=== PATIENT | female | born 1940 | race American Indian/Alaskan Native ===

== ENCOUNTER 2017-10-12 10:45 | Emergency (ER) | payer MEDICARE ==
[2017-10-12 12:16] LABS: BASO # 0.1 K/uL (0.0-0.2); BASO % 1.2 % (0.0-2.0); EOS # 0.1 K/uL (0.0-0.7); EOS % 1.2 % (0.0-4.0); HEMOGLOBIN 10.2 g/dL (11.0-16.0); LYMPH # 0.9 K/uL (1.0-4.3); LYMPH % 19.4 % (20.0-40.0); MEAN CELL VOLUME 93.6 fL (81.0-99.0); MEAN CORPUSCULAR HEMOGLOBIN 31.4 pg (27.0-31.0); MEAN CORPUSCULAR HGB CONC 33.5 g/dL (33.0-37.0); MEAN PLATELET VOLUME 7.4 fL (7.2-11.7); MONO # 0.4 K/uL (0.0-0.8); MONO % 8.9 % (0.0-10.0); NEUT # 3.1 K/uL (1.8-7.0); NEUT % 69.3 % (50.0-75.0); NRBC % 0.1 % (0.0-2.0); RBC 3.25 Mil/uL (3.80-5.20); RED CELL DISTRIBUTION WIDTH 13.8 % (11.5-14.5); WHITE BLOOD COUNT 4.5 K/uL (4.8-10.8)
--- NOTE | 2017-10-12 12:43 | C.PDOC ---
History Of Present Illness 76 year old female, with PMHx of diabetes, HTN, and hypercholesterolemia, presents to ED for evaluation of shortness of breath that started last night. Notes she had difficulty breathing last night, felt as if she couldn't catch her breath, which prevented her from sleeping last night. Notes that symptoms resolved this morning. Denies taking any medications. Denies history of similar symptoms in the past. She admits to leg swelling. Otherwise, denies chest pain, fever, chills, cough, nausea, or vomiting. Time Seen by Provider: 10/12/17 11:49 Chief Complaint (Nursing): Shortness Of Breath History Per: Patient History/Exam Limitations: no limitations Onset/Duration Of Symptoms: Days Current Symptoms Are (Timing): Gone Severity: None Pain Scale Rating Of: 0 Associated Symptoms: Ankle/Leg Swelling. denies: Sweating, Chest Pain, Productive Cough, Heart Racing, Leg/Calf Pain, Dizziness, Light-headedness Recent travel outside of the [place]: No Additional History Per: Patient Past Medical History Reviewed: Historical Data, Nursing Documentation, Vital Signs Vital Signs: Last Vital Signs Temp 97.5 F L 10/12/17 10:57 Pulse 71 10/12/17 12:47 Resp 16 10/12/17 12:47 BP 200/69 H 10/12/17 12:47 Pulse Ox 99 10/12/17 13:00 - Medical History PMH: Diabetes, HTN, Hypercholesterolemia, Hyperlipidemia Family History: States: Unknown Family Hx - Social History Hx Alcohol Use: No Hx Substance Use: No Review Of Systems Except As Marked, All Systems Reviewed And Found Negative. Constitutional: Negative for: Fever, Chills Cardiovascular: Positive for: Edema. Negative for: Chest Pain, Palpitations, Light Headedness Respiratory: Negative for: Cough, Shortness of Breath Gastrointestinal: Negative for: Nausea, Vomiting Neurological: Negative for: Headache, Dizziness Physical Exam - Physical Exam Appears: Non-toxic, No Acute Distress Skin: Normal Color, Warm, Dry Head: Atraumatic, Normacephalic Eye(s): bilateral: Normal Inspection Oral Mucosa: Moist Neck: Normal ROM, Supple Chest: Symmetrical Cardiovascular: Rhythm Regular Respiratory: Normal Breath Sounds, No Accessory Muscle Use, No Rales, No Rhonchi , No Wheezing Gastrointestinal/Abdominal: Soft, No Tenderness Extremity: Normal ROM, Pedal Edema (bilateral) Neurological/Psych: Oriented x3, Normal Speech ED Course And Treatment - Laboratory Results Result Diagrams: 10/12/17 12:12 10/12/17 12:46 O2 Sat by Pulse Oximetry: 99 (RA) Pulse Ox Interpretation: Normal Progress Note: Blood work, Urinalysis, CXR, EKG ordered. Patient will be signed over to ELAYNE Woods, pending labs and re-evaluation. Disposition - Disposition Disposition Time: 13:18 Condition: STABLE Forms: [employer] (Martiniquais) - Clinical Impression Clinical Impression: SOB (shortness of breath) - PA / TRANSMISSION SUPERVISOR / Resident Statement MD/DO has reviewed & agrees with the documentation as recorded. - Scribe Statement The provider has reviewed the documentation as recorded by the Scribe KP All medical record entries made by the Scribe were at my direction and personally dictated by me. I have reviewed the chart and agree that the record accurately reflects my personal performance of the history, physical exam, medical decision making, and the department course for this patient. I have also personally directed, reviewed, and agree with the discharge instructions and disposition. Physician Patient Turnover Patient Signed Over To: Tarsha Woods Handoff Comments: Pending labs and re-evaluation.
[2017-10-12 12:57] LABS: URINE BILIRUBIN NEGATIVE (NEGATIVE); URINE BLOOD NEGATIVE (NEGATIVE); URINE CLARITY Clear (Clear); URINE COLOR Yellow (YELLOW); URINE GLUCOSE (UA) NORMAL (Normal); URINE LEUKOCYTE ESTERASE NEG Leu/uL (Negative); URINE PROTEIN 2+ mg/dL (NEGATIVE); URINE UROBILINOGEN NORMAL mg/dL (0.2-1.0)
[2017-10-12 13:02] LABS: INR 1.1; PROTHROMBIN TIME 12.2 SECONDS (9.7-12.2)
[2017-10-12 13:05] LABS: ALB/GLOB RATIO 1.3 (1.0-2.1); ALBUMIN 4.2 g/dL (3.5-5.0); CALCIUM 10.2 mg/dl (8.6-10.4)
[2017-10-12 14:59] LABS: CK-MB 1.76 ng/mL (0.0-3.38)
--- NOTE | 2017-10-12 14:59 | RAD ---
Chest x-ray two views History: Shortness of breath Comparison: 12/03/2012 Findings: Biapical pleural thickening with upper lobe granulomatous changes. Mild venous congestion. Patchy increased markings at the left lung base. Enlarged ectatic aorta with calcification at the aortic knob and aorta. Mild cardiomegaly. Degenerative changes in the spine with paravertebral osteophytes. Impression: Biapical pleural thickening with upper lobe granulomatous changes. Mild venous congestion. Patchy increased markings at the left lung base. Enlarged ectatic aorta with calcification at the aortic knob and aorta. Mild cardiomegaly. Degenerative changes in the spine with paravertebral osteophytes.
[2017-10-12 15:39] LABS: TROPONIN I 0.357 ng/mL (0.00-0.120)
[2017-10-12] MEDS ORDERED: SODIUM CHLORIDE 0.9% IV ONE (16:08)
[2017-10-12] MEDS ORDERED: HEPARIN IV ONE (16:08)
[2017-10-12] MEDS ORDERED: Heparin 25,000units in D5W 25,000 UNITS/250 ML BAG IV ONE (16:10)
[2017-10-12] MEDS ORDERED: Metoprolol 1 mg/ml Inj IVP STA (16:11)
[2017-10-12] MEDS ORDERED: Metoprolol 1 mg/ml Inj IVP ONE (16:26)
[2017-10-12 17:47] VITALS: BP 162/86; PULSE 86; RESP 18; TEMP 98; O2SAT 96
--- NOTE | 2017-10-14 15:57 | NM ---
Date of service: 10/12/2017 COMPARISON: Chest radiographs 10/12/2017. TECHNIQUE: 6.2 mCi technetium 99-m Xe-133 Gas. 4.9 mCI technetium 99-m MAA administered intravenously. FINDINGS: VENTILATION COMPONENT: No significant ventilation defect is appreciated in posterior plantar imaging. Normal washout is identified. PERFUSION COMPONENT: No definite moderate or large perfusion mismatch is identified. IMPRESSION: Lowprobability ventilation perfusion scan for pulmonary embolism. Concordant preliminary report from [facility], 10/12/2017.
--- NOTE | 2017-10-15 16:52 | CARD ---
APPROVED REPORT Date of service: 10/12/2017 EKG Measurement Heart [id number] NM [id number] <Conclusion> Sinus rhythm with premature atrial complexes Possible Left atrial enlargement Borderline ECG
== END 2017-10-12 17:47 | disposition left against medical advice (07) ==
LOC: C.ER 10:45
DX: I21.4 Non-ST elevation (NSTEMI) myocardial infarction (principal); R06.02 Shortness of breath
CPT/HCPCS: 72HRC; 93005

== ENCOUNTER 2017-10-12 20:03 | Inpatient (IN) | payer MEDICARE ==
--- NOTE | 2017-10-12 20:17 | C.PDOC ---
History Of Present Illness <Digna Segovia - Last Filed: 10/12/17 20:14> <Andry Junior DO - Last Filed: 10/12/17 21:14> 76 y/o female returns to ED for admission. Pt was seen here earlier but signed AMA. (Andry Junior DO) <Digna Segovia - Last Filed: 10/12/17 20:14> <Andry Junior DO - Last Filed: 10/12/17 21:14> Chief Complaint (Nursing): Shortness Of Breath Past Medical History - Medical History PMH: Diabetes, HTN, Hypercholesterolemia, Hyperlipidemia Family History: States: Unknown Family Hx - Social History Hx Alcohol Use: No Hx Substance Use: No <Digna Segovia - Last Filed: 10/12/17 20:14> Vital Signs: Last Vital Signs Temp 98.1 F 10/12/17 20:10 Pulse 71 10/12/17 20:10 Resp 20 10/12/17 20:57 BP 172/72 H 10/12/17 20:10 Pulse Ox 98 10/12/17 20:57 ED Course And Treatment O2 Sat by Pulse Oximetry: 98 <Digna Segovia - Last Filed: 10/12/17 20:14> Disposition <Digna Segovia - Last Filed: 10/12/17 20:14> <Andry Junior DO - Last Filed: 10/12/17 21:14> - Disposition Forms: [employer] (French) <Digna Segovia - Last Filed: 10/12/17 20:14> - Scribe Statement The provider has reviewed the documentation as recorded by the Scribe <Andry Junior DO - Last Filed: 10/12/17 21:14> - Scribe Statement Jr Petit All medical record entries made by the Scribe were at my direction and personally dictated by me. I have reviewed the chart and agree that the record accurately reflects my personal performance of the history, physical exam, medical decision making, and the department course for this patient. I have also personally directed, reviewed, and agree with the discharge instructions and disposition. (Andry Junior DO)
--- NOTE | 2017-10-12 21:18 | C.PDOC ---
History Of Present Illness 76 y/o female returns to ED for admission. Pt was seen here earlier today for shortness of breath, was advised to stay for admission but signed AMA. She denies any new complaints at this time. Chief Complaint (Nursing): Shortness Of Breath History Per: Patient History/Exam Limitations: no limitations Past Medical History Reviewed: Historical Data, Nursing Documentation, Vital Signs Vital Signs: Last Vital Signs Temp 98.1 F 10/12/17 20:10 Pulse 71 10/12/17 20:10 Resp 20 10/12/17 20:57 BP 172/72 H 10/12/17 20:10 Pulse Ox 98 10/12/17 21:19 - Medical History PMH: Diabetes, HTN, Hypercholesterolemia, Hyperlipidemia Family History: States: Unknown Family Hx - Social History Hx Alcohol Use: No Hx Substance Use: No Review Of Systems Except As Marked, All Systems Reviewed And Found Negative. Constitutional: Negative for: Fever, Chills Cardiovascular: Negative for: Chest Pain, Palpitations Respiratory: Negative for: Cough, Shortness of Breath Gastrointestinal: Negative for: Nausea, Vomiting, Abdominal Pain Physical Exam - Physical Exam Appears: Non-toxic, No Acute Distress Skin: Normal Color, Warm, Dry Head: Atraumatic, Normacephalic Eye(s): bilateral: Normal Inspection Oral Mucosa: Moist Neck: Normal ROM, Supple Cardiovascular: Rhythm Regular Respiratory: Normal Breath Sounds, No Rales, No Rhonchi, No Wheezing Gastrointestinal/Abdominal: Soft, No Tenderness Extremity: Normal ROM, No Pedal Edema Neurological/Psych: Oriented x3, Normal Speech ED Course And Treatment ECG: Interpreted By Me, Viewed By Me ECG Rhythm: Sinus Rhythm ECG Interpretation: No Acute Changes Rate From EC (bpm) O2 Sat by Pulse Oximetry: 98 (RA) Pulse Ox Interpretation: Normal Medical Decision Making Medical Decision Making: EKG ordered and reviewed. Pending call back from PMD. Disposition - Disposition Disposition Time: 21:00 Condition: GUARDED - Clinical Impression Clinical Impression: NSTEMI (non-ST elevated myocardial infarction) - Scribe Statement The provider has reviewed the documentation as recorded by the Scribe Jr Petit All medical record entries made by the Scribe were at my direction and personally dictated by me. I have reviewed the chart and agree that the record accurately reflects my personal performance of the history, physical exam, medical decision making, and the department course for this patient. I have also personally directed, reviewed, and agree with the discharge instructions and disposition.
[2017-10-12 22:45] LABS: CK-MB 2.43 ng/mL (0.0-3.38); TROPONIN I 0.337 ng/mL (0.00-0.120)
[2017-10-12] MEDS ORDERED: Heparin25000 units/250ml 1/2NS 25,000 UNITS/250 ML BAG IV STA (22:48)
[2017-10-12] MEDS ORDERED: Heparin25000 units/250ml 1/2NS 25,000 UNITS/250 ML BAG IV PRN (22:53)
[2017-10-13 05:13] LABS: EOS # 0.1 K/uL (0.0-0.7); HEMOGLOBIN 10.4 g/dL (11.0-16.0); LYMPH % 19.3 % (20.0-40.0); MEAN CELL VOLUME 93.1 fL (81.0-99.0); MEAN CORPUSCULAR HGB CONC 33.3 g/dL (33.0-37.0); MONO # 0.5 K/uL (0.0-0.8); MONO % 9.7 % (0.0-10.0); NEUT # 3.4 K/uL (1.8-7.0); NRBC % 0.1 % (0.0-2.0); RBC 3.34 Mil/uL (3.80-5.20); RED CELL DISTRIBUTION WIDTH 13.8 % (11.5-14.5)
[2017-10-13 05:30] LABS: PROTHROMBIN TIME 12.8 SECONDS (9.7-12.2)
[2017-10-13 05:31] LABS: INR 1.2
[2017-10-13 06:24] LABS: ALB/GLOB RATIO 1.3 (1.0-2.1); ALBUMIN 4.1 g/dL (3.5-5.0); CALCIUM 10.1 mg/dl (8.6-10.4); TROPONIN I 0.241 ng/mL (0.00-0.120)
[2017-10-13] MEDS ORDERED: Heparin25000 units/250ml 1/2NS 25,000 UNITS/250 ML BAG IV PRN (14:45)
--- NOTE | 2017-10-13 16:19 | CP.PCM.HP ---
History of Present Illness - History of Present Illness History of Present Illness: This is a 76 y/o female diabetic, with known history of HTN, hyperlipiedemia who was admitted because of shortness of breath. patient claims that she noted that she has been getting easily tired and progressively short of breath about 4 -5 days prior to admission ostensibly because of the heat. She also noted on and off ankle edema. On the night prior to admission, she could not sleep because she could not catch her breath when she laid down on the bed and felt more tired in the morning and hence she decided to go to the ER. She was found to have elevated troponin and was advised to be admitted. She initially refused and signed out AMA but later came back and agreed to stay. She denies any chest pain, epigastric pain or history of indigestion. There is no history of nausea or vomiting, palpitation or syncope. Present on Admission - Present on Admission Any Indicators Present on Admission: No Review of Systems - Constitutional Constitutional: Fatigue, Weakness - Cardiovascular Cardiovascular: Dyspnea on Exertion, Edema - Respiratory Respiratory: Dyspnea on Exertion - Musculoskeletal Musculoskeletal: As Per HPI - Psychiatric Psychiatric: As Per HPI Past Patient History - Infectious Disease Hx of Infectious Diseases: None - Past Medical History & Family History Past Medical History?: Yes - Past Social History Smoking Status: Never Smoked Chewing Tobacco Use: No Alcohol: None Drugs: Denies - CARDIAC Hx Hypercholesterolemia: Yes Hx Hypertension: Yes - PULMONARY Hx Respiratory Disorders: No - NEUROLOGICAL Hx Neurological Disorder: No - HEENT Hx Cataracts: Yes - RENAL Hx Chronic Kidney Disease: No - ENDOCRINE/METABOLIC Hx Diabetes Mellitus Type 2: Yes - HEMATOLOGICAL/ONCOLOGICAL Hx Blood Disorders: No - INTEGUMENTARY Hx Dermatological Problems: No - MUSCULOSKELETAL/RHEUMATOLOGICAL Hx Falls: Yes - GASTROINTESTINAL Hx Gastrointestinal Disorders: No - GENITOURINARY/GYNECOLOGICAL Hx Genitourinary Disorders: No - PSYCHIATRIC Hx Psychophysiologic Disorder: No Hx Substance Use: No - SURGICAL HISTORY Hx Surgeries: Yes Hx Hysterectomy: Yes - ANESTHESIA Hx Anesthesia: Yes Hx Anesthesia Reactions: No Meds Allergies/Adverse Reactions: Allergies Allergy/AdvReac Type Severity Reaction Status Date / Time metformin AdvReac Intermediate VOMITING Verified 10/16/17 16:22 Physical Exam - Constitutional Appears: No Acute Distress - Head Exam Head Exam: NORMAL INSPECTION - Eye Exam Eye Exam: Normal appearance - ENT Exam ENT Exam: Normal Exam - Neck Exam Neck exam: Positive for: Normal Inspection - Respiratory Exam Respiratory Exam: Clear to Auscultation Bilateral, NORMAL BREATHING PATTERN - Cardiovascular Exam Cardiovascular Exam: REGULAR RHYTHM, +S1, +S2 - GI/Abdominal Exam GI & Abdominal Exam: Normal Bowel Sounds, Soft - Extremities Exam Extremities exam: Positive for: normal inspection - Neurological Exam Neurological exam: Alert, Oriented x3 - Psychiatric Exam Psychiatric exam: Normal Affect, Normal Mood - Skin Skin Exam: Dry, Intact Results - Vital Signs Recent Vital Signs: Last Vital Signs Temp 97.9 F 10/13/17 09:25 Pulse 63 10/13/17 09:45 Resp 20 10/13/17 09:25 BP 149/69 10/13/17 09:25 Pulse Ox 99 10/13/17 09:25 - Labs Result Diagrams: 10/15/17 08:29 10/15/17 08:29 Labs: Laboratory Results - last 24 hr 10/12/17 10/13/17 10/13/17 22:00 05:10 05:10 WBC RBC Hgb Hct MCV MCH MCHC RDW Plt Count MPV Neut % (Auto) Lymph % (Auto) [place] % (Auto) Eos % (Auto) Baso % (Auto) Neut # (Auto) Lymph # (Auto) [place] # (Auto) Eos # (Auto) Baso # (Auto) PT 12.8 H INR 1.2 APTT 210 H* D Sodium 144 Potassium 3.6 Chloride 105 Carbon Dioxide 31 H Anion Gap 12 BUN 27 H Creatinine 1.8 H Est GFR ( Amer) 33 Est GFR (Non-Af Amer) 27 Random Glucose 105 Calcium 10.1 Total Bilirubin 0.3 AST 63 H D ALT 63 H D Alkaline Phosphatase 114 Total Creatine Kinase 213 H CK-MB (Mass) 2.43 Troponin I 0.3370 H* 0.2410 H* Total Protein 7.3 Albumin 4.1 Globulin 3.2 Albumin/Globulin Ratio 1.3 10/13/17 10/13/17 10/13/17 05:10 13:20 14:03 WBC 5.0 RBC 3.34 L Hgb 10.4 L Hct 31.1 L MCV 93.1 MCH 31.0 MCHC 33.3 RDW 13.8 Plt Count 268 MPV 7.0 L Neut % (Auto) 68.0 Lymph % (Auto) 19.3 L [place] % (Auto) 9.7 Eos % (Auto) 2.0 Baso % (Auto) 1.0 Neut # (Auto) 3.4 Lymph # (Auto) 1.0 [place] # (Auto) 0.5 Eos # (Auto) 0.1 Baso # (Auto) 0.0 PT INR APTT 41 H D Sodium Potassium Chloride Carbon Dioxide Anion Gap BUN Creatinine Est GFR ( Amer) Est GFR (Non-Af Amer) Random Glucose Calcium Total Bilirubin AST ALT Alkaline Phosphatase Total Creatine Kinase CK-MB (Mass) Troponin I 0.1500 H* Total Protein Albumin Globulin Albumin/Globulin Ratio Assessment & Plan (1) NSTEMI (non-ST elevated myocardial infarction) Assessment and Plan: No chest pain, troponin trending down. patient is chest pain free no further shortness of breath at rest continue heparin drip for now under PT/PTT monitoring Continue rest of meds. Patient has multiple risk factors and will need cardiac cath to determine extent of CAD Status: Acute Priority: High (2) Type 2 diabetes mellitus with hyperglycemia Assessment and Plan: Patient on multiple oral hypoglycemic agents because she refuses to go on insulin. Will check HGbA1c and ordered accucheck Status: Chronic Priority: High (3) Hypertension Assessment and Plan: cxontrolled on current meds. Status: Chronic Priority: Medium (4) Hyperlipidemia Assessment and Plan: Continue Crestor Status: Chronic Priority: High (5) Prerenal azotemia Assessment and Plan: CHF vs Diabetic nephropathy. Continue current Rx and monitor renal function. Status: Acute Priority: High Decision To Admit - Pt Status Changed To: Hospital Disposition Of: Inpatient - Admit Certification Admit to Inpatient:: After my assessment, the patient will require hospitalization for at least two midnights. This is because of the severity of symptoms shown, intensity of services needed, and/or the medical risk in this patient being treated as an outpatient. - InPatient: Physician Admission Certification:: After my assessment, the patient will require hospitalization for at least two midnights. This is because of the severity of symptoms shown, intensity of services needed, and/or the medical risk in this patient being treated as an outpatient - . Bed Request Type: Telemetry Admitting Physician: Cande Coleman
[2017-10-13] MEDS: (Novolin 70/30) NPH/Regular 70/30 Units/ml 10 ml vial SC SCH ×2 (17:46→21:39)
--- NOTE | 2017-10-13 22:54 | CP.PCM.CON ---
History of Present Illness - History of Present Illness History of Present Illness: 76 F with multiple cardiac risk risk factors Admitted for Non ST elevation CA Scheduled for Cardiac cath tomorrow afternoon NPO after breakfast D/W patient and her Past Patient History - Infectious Disease Hx of Infectious Diseases: None - Past Medical History & Family History Past Medical History?: Yes - Past Social History Smoking Status: Never Smoked Chewing Tobacco Use: No Alcohol: None Drugs: Denies - CARDIAC Hx Hypercholesterolemia: Yes Hx Hypertension: Yes - PULMONARY Hx Respiratory Disorders: No - NEUROLOGICAL Hx Neurological Disorder: No - HEENT Hx Cataracts: Yes - RENAL Hx Chronic Kidney Disease: No - ENDOCRINE/METABOLIC Hx Diabetes Mellitus Type 2: Yes - HEMATOLOGICAL/ONCOLOGICAL Hx Blood Disorders: No - INTEGUMENTARY Hx Dermatological Problems: No - MUSCULOSKELETAL/RHEUMATOLOGICAL Hx Falls: Yes - GASTROINTESTINAL Hx Gastrointestinal Disorders: No - GENITOURINARY/GYNECOLOGICAL Hx Genitourinary Disorders: No - PSYCHIATRIC Hx Psychophysiologic Disorder: No Hx Substance Use: No - SURGICAL HISTORY Hx Surgeries: Yes Hx Hysterectomy: Yes - ANESTHESIA Hx Anesthesia: Yes Hx Anesthesia Reactions: No Meds Allergies/Adverse Reactions: Allergies Allergy/AdvReac Type Severity Reaction Status Date / Time No Known Allergies Allergy Verified 10/12/17 20:13 - Medications Medications: Current Medications Amlodipine Besylate (Norvasc) 5 mg PO DAILY [facility] Last Admin: 10/13/17 10:10 Dose: 5 mg Aspirin (Aspirin Chewable) 81 mg PO DAILY [facility] Last Admin: 10/13/17 18:12 Dose: 81 mg Glipizide (Glucotrol) 10 mg PO BID [facility] Last Admin: 10/13/17 17:49 Dose: Not Given Heparin Sodium/Sodium Chloride (Heparin 22868 Units/250ml 1/2 Normal Saline) 25 ,000 units in 250 mls @ 3.963 mls/hr IV .Q24H PRN; Protocol; 6.24 UNITS/KG/HR PRN Reason: ADJUST RATE PER PROTOCOL Last Admin: 10/13/17 15:06 Dose: 6.24 units/kg/hr, 3.963 mls/hr Insulin Human Isoph/Insulin Regular (Novolin 70/30 (70/30 Units/Ml) 10 Ml) 0 units SC ACHS [facility] PRN Reason: Protocol Last Admin: 10/13/17 21:39 Dose: Not Given Losartan Potassium (Cozaar) 100 mg PO DAILY [facility] Last Admin: 10/13/17 10:10 Dose: 100 mg Metoprolol Tartrate (Lopressor) 50 mg PO BID [facility] Last Admin: 10/13/17 18:12 Dose: 50 mg Pioglitazone HCl (Actos) 45 mg PO DAILY [facility] Last Admin: 10/13/17 10:52 Dose: 45 mg Rosuvastatin Calcium (Crestor) 5 mg PO HS [facility] Last Admin: 10/13/17 22:16 Dose: 5 mg Sitagliptin Phosphate (Januvia) 50 mg PO DAILY [facility] Results - Vital Signs Recent Vital Signs: Last Vital Signs Temp 98.4 F 10/13/17 15:15 Pulse 71 10/13/17 16:00 Resp 20 10/13/17 15:15 BP 148/69 10/13/17 15:15 Pulse Ox 96 10/13/17 15:15 - Labs Result Diagrams: 10/13/17 05:10 10/13/17 05:10 Labs: Laboratory Results - last 24 hr 10/13/17 10/13/17 10/13/17 05:10 05:10 05:10 WBC 5.0 RBC 3.34 L Hgb 10.4 L Hct 31.1 L MCV 93.1 MCH 31.0 MCHC 33.3 RDW 13.8 Plt Count 268 MPV 7.0 L Neut % (Auto) 68.0 Lymph % (Auto) 19.3 L [place] % (Auto) 9.7 Eos % (Auto) 2.0 Baso % (Auto) 1.0 Neut # (Auto) 3.4 Lymph # (Auto) 1.0 [place] # (Auto) 0.5 Eos # (Auto) 0.1 Baso # (Auto) 0.0 PT 12.8 H INR 1.2 APTT 210 H* D Sodium 144 Potassium 3.6 Chloride 105 Carbon Dioxide 31 H Anion Gap 12 BUN 27 H Creatinine 1.8 H Est GFR ( Amer) 33 Est GFR (Non-Af Amer) 27 Random Glucose 105 Calcium 10.1 Total Bilirubin 0.3 AST 63 H D ALT 63 H D Alkaline Phosphatase 114 Troponin I 0.2410 H* NT-Pro-B Natriuret Pep Total Protein 7.3 Albumin 4.1 Globulin 3.2 Albumin/Globulin Ratio 1.3 10/13/17 10/13/17 10/13/17 13:20 14:03 16:24 WBC RBC Hgb Hct MCV MCH MCHC RDW Plt Count MPV Neut % (Auto) Lymph % (Auto) [place] % (Auto) Eos % (Auto) Baso % (Auto) Neut # (Auto) Lymph # (Auto) [place] # (Auto) Eos # (Auto) Baso # (Auto) PT INR APTT 41 H D Sodium Potassium Chloride Carbon Dioxide Anion Gap BUN Creatinine Est GFR ( Amer) Est GFR (Non-Af Amer) Random Glucose Calcium Total Bilirubin AST ALT Alkaline Phosphatase Troponin I 0.1500 H* NT-Pro-B Natriuret Pep 2540 H Total Protein Albumin Globulin Albumin/Globulin Ratio 10/13/17 21:07 WBC RBC Hgb Hct MCV MCH MCHC RDW Plt Count MPV Neut % (Auto) Lymph % (Auto) [place] % (Auto) Eos % (Auto) Baso % (Auto) Neut # (Auto) Lymph # (Auto) [place] # (Auto) Eos # (Auto) Baso # (Auto) PT INR APTT 46 H D Sodium Potassium Chloride Carbon Dioxide Anion Gap BUN Creatinine Est GFR ( Amer) Est GFR (Non-Af Amer) Random Glucose Calcium Total Bilirubin AST ALT Alkaline Phosphatase Troponin I NT-Pro-B Natriuret Pep Total Protein Albumin Globulin Albumin/Globulin Ratio
[2017-10-14 03:43] LABS: BASO % 0.4 % (0.0-2.0); EOS # 0.1 K/uL (0.0-0.7); EOS % 2.8 % (0.0-4.0); HEMOGLOBIN 9.8 g/dL (11.0-16.0); LYMPH # 0.8 K/uL (1.0-4.3); LYMPH % 21.3 % (20.0-40.0); MEAN CELL VOLUME 94.3 fL (81.0-99.0); MEAN CORPUSCULAR HEMOGLOBIN 31.8 pg (27.0-31.0); MEAN CORPUSCULAR HGB CONC 33.7 g/dL (33.0-37.0); MEAN PLATELET VOLUME 7.1 fL (7.2-11.7); MONO # 0.4 K/uL (0.0-0.8); MONO % 10.4 % (0.0-10.0); NEUT # 2.5 K/uL (1.8-7.0); NEUT % 65.1 % (50.0-75.0); NRBC % 0.2 % (0.0-2.0); RBC 3.1 Mil/uL (3.80-5.20); RED CELL DISTRIBUTION WIDTH 13.8 % (11.5-14.5); WHITE BLOOD COUNT 3.8 K/uL (4.8-10.8)
[2017-10-14 04:07] LABS: CK-MB 1.53 ng/mL (0.0-3.38); TROPONIN I 0.1 ng/mL (0.00-0.120)
[2017-10-14 04:19] LABS: ALB/GLOB RATIO 1.2 (1.0-2.1); ALBUMIN 3.8 g/dL (3.5-5.0); CALCIUM 9.7 mg/dl (8.6-10.4)
[2017-10-14] MEDS: (Novolin 70/30) NPH/Regular 70/30 Units/ml 10 ml vial SC SCH ×4 (08:29→21:32)
--- NOTE | 2017-10-14 09:01 | HP ---
Copied To: Gege Handley MD Attending MD: Gege Handley MD The patient is 76-year-old female. Actually, I was on-call on 10/12/[address] [facility] ER called me that patient was in emergency room. They tried to call Dr. Alicia at least 4 to 5 hours, Dr. Alicia never called back. Then they have to dispose the patient to be admitted under my service but later on the day nurse informed me Dr. Alicia came and saw the patient and did H and P. Even patient was admitted under my service, but without conversation with me. Dr. Alicia took the patient, but I am appreciating that he saw the patient now, Dr. Alicia will continue taking care of this patient. Gege Handley MD MTDD
--- NOTE | 2017-10-14 11:57 | CP.PCM.PN ---
Subjective - Date & Time of Evaluation Date of Evaluation: 10/14/17 Time of Evaluation: 11:30 - Subjective Subjective: patient comfortable, chest pain-free serum troponin- back to normal patient scheduled for cardiac cath today Objective - Vital Signs/Intake and Output Vital Signs (last 24 hours): Temp Pulse Resp BP Pulse Ox 97.9 F 60 20 173/66 H 98 10/14/17 07:11 10/14/17 07:11 10/14/17 07:11 10/14/17 07:11 10/14/17 07:11 Intake and Output: 10/14/17 10/14/17 06:59 18:59 Intake Total 29 Balance 29 - Medications Medications: Current Medications Amlodipine Besylate (Norvasc) 5 mg PO DAILY [facility] Last Admin: 10/14/17 11:45 Dose: 5 mg Aspirin (Aspirin Chewable) 81 mg PO DAILY [facility] Last Admin: 10/14/17 11:09 Dose: Not Given Glipizide (Glucotrol) 10 mg PO BID [facility] Last Admin: 10/14/17 11:20 Dose: Not Given Heparin Sodium/Sodium Chloride (Heparin 17536 Units/250ml 1/2 Normal Saline) 25 ,000 units in 250 mls @ 3.963 mls/hr IV .Q24H PRN; Protocol; 6.24 UNITS/KG/HR PRN Reason: ADJUST RATE PER PROTOCOL Last Titration: 10/14/17 04:48 Dose: 8.24 units/kg/hr, 5.233 mls/hr Sodium Chloride (Sodium Chloride 0.45%) 1,000 mls @ 50 mls/hr IV .Q20H [facility] Insulin Human Isoph/Insulin Regular (Novolin 70/30 (70/30 Units/Ml) 10 Ml) 0 units SC ACHS [facility] PRN Reason: Protocol Last Admin: 10/14/17 11:46 Dose: Not Given Losartan Potassium (Cozaar) 100 mg PO DAILY [facility] Last Admin: 10/14/17 09:16 Dose: 100 mg Metoprolol Tartrate (Lopressor) 50 mg PO BID [facility] Last Admin: 10/14/17 09:16 Dose: 50 mg Pioglitazone HCl (Actos) 45 mg PO DAILY [facility] Last Admin: 10/14/17 11:20 Dose: Not Given Rosuvastatin Calcium (Crestor) 5 mg PO HS [facility] Last Admin: 10/13/17 22:16 Dose: 5 mg Sitagliptin Phosphate (Januvia) 50 mg PO DAILY [facility] Last Admin: 10/14/17 11:21 Dose: Not Given - Labs Labs: 10/14/17 03:39 10/14/17 03:39 PT 12.8 SECONDS (9.7-12.2) H 10/13/17 05:10 INR 1.2 10/13/17 05:10 APTT 48 SECONDS (21-34) H D 10/14/17 11:23 Assessment and Plan (1) NSTEMI (non-ST elevated myocardial infarction) Status: Acute (2) Type 2 diabetes mellitus with hyperglycemia Status: Chronic (3) Hypertension Status: Chronic (4) Hyperlipidemia Status: Chronic (5) Prerenal azotemia Status: Acute
[2017-10-14] MEDS ORDERED: Sodium Chloride 0.45% 1,000 ML IV SCH ×2 (12:00→15:30)
[2017-10-14] MEDS ORDERED: Iodixanol 320 MG/ML 100 ML BOTTLE IV ONE ×2 (14:28→15:09)
[2017-10-14] MEDS ORDERED: Verapamil 2 ML ONE (14:29)
[2017-10-14] MEDS ORDERED: Midazolam 2 MG/2 ML VIAL ONE (14:30)
[2017-10-14] MEDS ORDERED: Nitroglycerin 50mg in D5W 50 MG/250 ML BOTTLE IV ONE (14:30)
[2017-10-14] MEDS ORDERED: Lidocaine 2% MPF (5 ml) Inj ONE (14:41)
--- NOTE | 2017-10-14 19:33 | CP.PCM.CON ---
History of Present Illness - History of Present Illness History of Present Illness: pt is seen and examined, full consult is dictated #[id number] Past Patient History - Infectious Disease Hx of Infectious Diseases: None - Past Medical History & Family History Past Medical History?: Yes - Past Social History Smoking Status: Never Smoked Chewing Tobacco Use: No Alcohol: None Drugs: Denies - CARDIAC Hx Hypercholesterolemia: Yes Hx Hypertension: Yes - PULMONARY Hx Respiratory Disorders: No - NEUROLOGICAL Hx Neurological Disorder: No - HEENT Hx Cataracts: Yes - RENAL Hx Chronic Kidney Disease: No - ENDOCRINE/METABOLIC Hx Diabetes Mellitus Type 2: Yes - HEMATOLOGICAL/ONCOLOGICAL Hx Blood Disorders: No - INTEGUMENTARY Hx Dermatological Problems: No - MUSCULOSKELETAL/RHEUMATOLOGICAL Hx Falls: Yes - GASTROINTESTINAL Hx Gastrointestinal Disorders: No - GENITOURINARY/GYNECOLOGICAL Hx Genitourinary Disorders: No - PSYCHIATRIC Hx Psychophysiologic Disorder: No Hx Substance Use: No - SURGICAL HISTORY Hx Surgeries: Yes Hx Hysterectomy: Yes - ANESTHESIA Hx Anesthesia: Yes Hx Anesthesia Reactions: No Meds Allergies/Adverse Reactions: Allergies Allergy/AdvReac Type Severity Reaction Status Date / Time No Known Allergies Allergy Verified 10/12/17 20:13 - Medications Medications: Current Medications Amlodipine Besylate (Norvasc) 5 mg PO DAILY [facility] Last Admin: 10/14/17 11:45 Dose: 5 mg Aspirin (Aspirin Chewable) 81 mg PO DAILY [facility] Last Admin: 10/14/17 11:09 Dose: Not Given Clopidogrel Bisulfate (Plavix) 75 mg PO DAILY [facility] Glipizide (Glucotrol) 10 mg PO BID [facility] Last Admin: 10/14/17 19:10 Dose: 10 mg Heparin Sodium (Porcine) (Heparin) 5,000 units SC Q8 [facility] Sodium Chloride (Sodium Chloride 0.45%) 1,000 mls @ 70 mls/hr IV .[id number] [facility] Stop: 10/15/17 03:30 Last Admin: 10/14/17 17:15 Dose: 70 mls/hr Insulin Human Isoph/Insulin Regular (Novolin 70/30 (70/30 Units/Ml) 10 Ml) 0 units SC ACHS [facility] PRN Reason: Protocol Last Admin: 10/14/17 18:01 Dose: Not Given Losartan Potassium (Cozaar) 100 mg PO DAILY [facility] Last Admin: 10/14/17 09:16 Dose: 100 mg Metoprolol Tartrate (Lopressor) 50 mg PO BID [facility] Last Admin: 10/14/17 18:11 Dose: 50 mg Pioglitazone HCl (Actos) 45 mg PO DAILY [facility] Last Admin: 10/14/17 11:20 Dose: Not Given Rosuvastatin Calcium (Crestor) 5 mg PO HS [facility] Last Admin: 10/13/17 22:16 Dose: 5 mg Sitagliptin Phosphate (Januvia) 50 mg PO DAILY [facility] Last Admin: 10/14/17 11:21 Dose: Not Given Results - Vital Signs Recent Vital Signs: Last Vital Signs Temp 98.0 F 10/14/17 17:05 Pulse 73 10/14/17 19:15 Resp 20 10/14/17 17:05 BP 158/71 H 10/14/17 17:05 Pulse Ox 100 10/14/17 17:05 - Labs Result Diagrams: 10/14/17 03:39 10/14/17 03:39 Labs: Laboratory Results - last 24 hr 10/13/17 10/13/17 10/13/17 12:00 16:24 20:55 WBC RBC Hgb Hct MCV MCH MCHC RDW Plt Count MPV Neut % (Auto) Lymph % (Auto) [place] % (Auto) Eos % (Auto) Baso % (Auto) Neut # (Auto) Lymph # (Auto) [place] # (Auto) Eos # (Auto) Baso # (Auto) APTT Sodium Potassium Chloride Carbon Dioxide Anion Gap BUN Creatinine Est GFR ( Amer) Est GFR (Non-Af Amer) POC Glucose (mg/dL) 173 H 75 198 H Random Glucose Hemoglobin A1c Calcium Total Bilirubin AST ALT Alkaline Phosphatase Total Creatine Kinase CK-MB (Mass) Troponin I Total Protein Albumin Globulin Albumin/Globulin Ratio 10/13/17 10/14/17 10/14/17 21:07 03:39 03:39 WBC 3.8 L RBC 3.10 L Hgb 9.8 L Hct 29.2 L MCV 94.3 MCH 31.8 H MCHC 33.7 RDW 13.8 Plt Count 251 MPV 7.1 L Neut % (Auto) 65.1 Lymph % (Auto) 21.3 [place] % (Auto) 10.4 H Eos % (Auto) 2.8 Baso % (Auto) 0.4 Neut # (Auto) 2.5 Lymph # (Auto) 0.8 L [place] # (Auto) 0.4 Eos # (Auto) 0.1 Baso # (Auto) 0.0 APTT 46 H D Sodium Potassium Chloride Carbon Dioxide Anion Gap BUN Creatinine Est GFR ( Amer) Est GFR (Non-Af Amer) POC Glucose (mg/dL) Random Glucose Hemoglobin A1c 8.2 H Calcium Total Bilirubin AST ALT Alkaline Phosphatase Total Creatine Kinase CK-MB (Mass) Troponin I Total Protein Albumin Globulin Albumin/Globulin Ratio 10/14/17 10/14/17 10/14/17 03:39 03:39 06:24 WBC RBC Hgb Hct MCV MCH MCHC RDW Plt Count MPV Neut % (Auto) Lymph % (Auto) [place] % (Auto) Eos % (Auto) Baso % (Auto) Neut # (Auto) Lymph # (Auto) [place] # (Auto) Eos # (Auto) Baso # (Auto) APTT 40 H D Sodium 142 Potassium 3.8 Chloride 103 Carbon Dioxide 25 Anion Gap 18 BUN 25 H Creatinine 1.8 H Est GFR ( Amer) 33 Est GFR (Non-Af Amer) 27 POC Glucose (mg/dL) 134 H Random Glucose 136 H Hemoglobin A1c Calcium 9.7 Total Bilirubin 0.3 AST 39 H D ALT 57 H Alkaline Phosphatase 76 Total Creatine Kinase 174 H CK-MB (Mass) 1.53 Troponin I 0.1000 Total Protein 7.0 Albumin 3.8 Globulin 3.3 Albumin/Globulin Ratio 1.2 10/14/17 10/14/17 10/14/17 11:18 11:23 16:26 WBC RBC Hgb Hct MCV MCH MCHC RDW Plt Count MPV Neut % (Auto) Lymph % (Auto) [place] % (Auto) Eos % (Auto) Baso % (Auto) Neut # (Auto) Lymph # (Auto) [place] # (Auto) Eos # (Auto) Baso # (Auto) APTT 48 H D Sodium Potassium Chloride Carbon Dioxide Anion Gap BUN Creatinine Est GFR ( Amer) Est GFR (Non-Af Amer) POC Glucose (mg/dL) 216 H 127 H Random Glucose Hemoglobin A1c Calcium Total Bilirubin AST ALT Alkaline Phosphatase Total Creatine Kinase CK-MB (Mass) Troponin I Total Protein Albumin Globulin Albumin/Globulin Ratio
--- NOTE | 2017-10-14 19:57 | CP.PCM.PN ---
Subjective - Date & Time of Evaluation Date of Evaluation: 10/14/17 Time of Evaluation: 19:56 - Subjective Subjective: Patient s/p cardiac cath L Main: Patent LAD/Diags: Mid LAD calcific 70-80% stenosis L Cx/RCA: Patent PCI of LAD in 2days Baldo ly in progress for CKD Objective - Vital Signs/Intake and Output Vital Signs (last 24 hours): Temp Pulse Resp BP Pulse Ox 98.0 F 73 20 158/71 H 100 10/14/17 17:05 10/14/17 19:15 10/14/17 17:05 10/14/17 17:05 10/14/17 17:05 - Medications Medications: Current Medications Amlodipine Besylate (Norvasc) 5 mg PO DAILY [facility] Last Admin: 10/14/17 11:45 Dose: 5 mg Aspirin (Aspirin Chewable) 81 mg PO DAILY [facility] Last Admin: 10/14/17 11:09 Dose: Not Given Clopidogrel Bisulfate (Plavix) 75 mg PO DAILY [facility] Glipizide (Glucotrol) 10 mg PO BID [facility] Last Admin: 10/14/17 19:10 Dose: 10 mg Heparin Sodium (Porcine) (Heparin) 5,000 units SC Q8 [facility] Sodium Chloride (Sodium Chloride 0.45%) 1,000 mls @ 70 mls/hr IV .[id number] [facility] Stop: 10/15/17 03:30 Last Admin: 10/14/17 17:15 Dose: 70 mls/hr Insulin Human Isoph/Insulin Regular (Novolin 70/30 (70/30 Units/Ml) 10 Ml) 0 units SC ACHS [facility] PRN Reason: Protocol Last Admin: 10/14/17 18:01 Dose: Not Given Losartan Potassium (Cozaar) 100 mg PO DAILY [facility] Last Admin: 10/14/17 09:16 Dose: 100 mg Metoprolol Tartrate (Lopressor) 50 mg PO BID [facility] Last Admin: 10/14/17 18:11 Dose: 50 mg Pioglitazone HCl (Actos) 45 mg PO DAILY [facility] Last Admin: 10/14/17 11:20 Dose: Not Given Rosuvastatin Calcium (Crestor) 5 mg PO HS [facility] Last Admin: 10/13/17 22:16 Dose: 5 mg Sitagliptin Phosphate (Januvia) 50 mg PO DAILY [facility] Last Admin: 10/14/17 11:21 Dose: Not Given - Labs Labs: 10/14/17 03:39 10/14/17 03:39 PT 12.8 SECONDS (9.7-12.2) H 10/13/17 05:10 INR 1.2 10/13/17 05:10 APTT 48 SECONDS (21-34) H D 10/14/17 11:23
[2017-10-14 21:04] LABS: IRON 74 ug/dL (37-170)
[2017-10-14 21:13] LABS: % IRON SATURATION 21 (20-55); TOTAL IRON BINDING CAPACITY 345 ug/dL (250-450)
--- NOTE | 2017-10-15 08:06 | CON ---
Copied To: Abel Honeycutt MD Attending MD: Abel Honeycutt MD DATE: 10/14/2017 RENAL CONSULTATION LOCATION: The patient is located in room 568, in bed A. REQUESTED BY: Dr. Cande Alicia and Dr. Andry Mabry. REASON FOR RENAL CONSULTATION: Chronic kidney disease, status post cardiac cath, and for further evaluation. HISTORY OF PRESENT ILLNESS: Mrs. Zuleta is a 76-year-old very pleasant elderly female with a past medical history significant for longstanding hypertension, diabetes for more than 10 to 15 years, hyperlipidemia who was admitted with chief complaints of shortness of breath, initially refused to stay in the hospital and signed out AMA and came back for admission on 10/12/2017 evening. The patient was found to have elevated troponin levels, and the patient underwent cardiac cath this afternoon and case discussed with Dr. Andry Mabry. As per Dr. Mabry, the patient will need PCI. The patient was started on IV fluids, and renal consult requested for further evaluation of CKD and to rule out contrast-induced nephropathy and prevention. The patient is not in acute distress. Denies any headache or dizziness. Denies any chest pain or palpitation. Denies any fever or cough. Denies any abdominal pain. Denies any nausea, vomiting, or diarrhea. The patient has complaints of shortness of breath. PAST MEDICAL HISTORY: Significant for longstanding hypertension, diabetes, and hyperlipidemia. PAST SURGICAL HISTORY: Questionable fibroids and hysterectomy long time ago. ALLERGIES: NO KNOWN DRUG ALLERGIES. SOCIAL HISTORY No smoking. No alcohol. No drugs. FAMILY HISTORY The patient is , and she has about three children, very supportive family. MEDICATIONS: Her current medications include as follows: Actos 45 mg p.o. daily, aspirin 81 mg daily, losartan 100 mg p.o. daily, Crestor 5 mg p.o. at bedtime, glipizide 10 mg p.o. b.i.d. subcu heparin 5000 every 8 hours, Januvia 50 mg p.o. daily, Lopressor 50 mg p.o. b.i.d., amlodipine 5 mg daily, Novolin 70/30, Plavix 75 mg p.o. daily, and IV fluids half-normal saline at 70 mL/hour. REVIEW OF SYSTEMS: Significant for shortness of breath. All other review of systems are reviewed and are negative. PHYSICAL EXAMINATION: VITAL SIGNS: As follows: Blood pressure 158/71, pulse 77, respirations 20, temperature 98, and saturation 100%. Height 5 feet 3 inches and weight is 140 pounds. HEENT: Mrs. Zuleta is a 76-year-old elderly -[place] female, very pleasant, moderately-built, moderately-nourished, not in acute distress. HEENT: Pupils are normal and reactive to light and accommodation. Conjunctivae pink. Sclerae anicteric. Tongue is moist and trachea is midline. LUNGS: Symmetric on both sides. Bilateral breath sounds present. Clear to auscultation. CVS: [place] at the fifth intercostal space, midclavicular line. S1, S2 audible. No murmur or gallop. ABDOMEN: Normal in appearance, soft, tympanitic. No guarding. No rigidity. No hepatosplenomegaly. 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 Nonfocal neuro examination. Cranial nerves II through XII grossly intact. Sensory and motor system is within normal limits. EXTREMITIES: No cyanosis, no clubbing, and no edema. The patient has feeble dorsalis pedis pulses in both lower extremities. LABORATORY DATA: Include as follows: As of 10/14/2017, WBC 3.3, hemoglobin 9.8, hematocrit is 29.2, platelets 251, PTT 48. Sodium 142, potassium 3.8, chloride 103, CO2 of 25, BUN 25, creatinine 1.8, glucose 136, calcium , hemoglobin A1c 8.2. Total bili 0.3, AST is 39, ALT 57, alkaline phosphatase 76, CPK 174, CK-MB 1.54, troponin 0.10, total protein 7, albumin 3.8. Iron 74, TIBC 345, saturation 21, ferritin is 56.1. Troponin level on admission were 0.337 and 0.241, and 0.150 and 0.10 early this morning. Other lab data as of 10/13/2017, her serum creatinine is 1.8. Ultrasound of kidneys report is pending this evening. ASSESSMENT AND PLAN: In summary, Mrs. Zuleta is a 76-year-old elderly female with a history of longstanding hypertension, diabetes, hyperlipidemia, and chronic kidney disease who was admitted with shortness of breath and underwent cardiac cath this evening and found to have a left main is patent, LAD and diagonal, mild LAD calcific 70% to 80% stenosis, left circumflex and ostia patent. Plan percutaneous coronary intervention of left anterior descending artery in 2 days. In summary, Mrs. Zuleta is a 76-year-old elderly female with hypertension, diabetes, hyperlipidemia, chronic kidney disease with shortness of breath, status post cardiac cath. 1. Chronic kidney disease stage 3, etiology is not clear, rule out hypertensive nephrosclerosis versus diabetic nephropathy. 2. Non-ST segment elevation myocardial infarction. 3. Hypertension. 4. Diabetes. PLAN: Repeat BMP in a.m. Continue IV fluids. Continue current medications including metoprolol, amlodipine, and losartan. We will also check urinalysis, and we will check 24-hour urine protein-creatinine, creatinine clearance, and urine protein electrophoresis and hepatitis B and C serology, PAOLA, C3, C4 and ultrasound of the kidneys were . We will follow with you. Thank you for allowing me to participate in your patient's care. Abel Honeycutt MD
[2017-10-15] MEDS: (Novolin 70/30) NPH/Regular 70/30 Units/ml 10 ml vial SC SCH (08:16)
[2017-10-15 08:36] LABS: BASO % 0.9 % (0.0-2.0); EOS # 0.1 K/uL (0.0-0.7); EOS % 2.2 % (0.0-4.0); HEMOGLOBIN 10.9 g/dL (11.0-16.0); LYMPH # 0.8 K/uL (1.0-4.3); LYMPH % 16.3 % (20.0-40.0); MEAN CORPUSCULAR HEMOGLOBIN 32.1 pg (27.0-31.0); MEAN CORPUSCULAR HGB CONC 34.1 g/dL (33.0-37.0); MEAN PLATELET VOLUME 7.3 fL (7.2-11.7); MONO # 0.4 K/uL (0.0-0.8); MONO % 8.8 % (0.0-10.0); NEUT # 3.5 K/uL (1.8-7.0); NEUT % 71.8 % (50.0-75.0); NRBC % 0.3 % (0.0-2.0); RBC 3.39 Mil/uL (3.80-5.20); RED CELL DISTRIBUTION WIDTH 13.7 % (11.5-14.5); WHITE BLOOD COUNT 4.9 K/uL (4.8-10.8)
[2017-10-15 09:12] LABS: ALB/GLOB RATIO 1.2 (1.0-2.1); ALBUMIN 4.3 g/dL (3.5-5.0); CALCIUM 10.2 mg/dl (8.6-10.4)
--- NOTE | 2017-10-15 09:14 | US ---
Renal ultrasound History: Chronic kidney disease. Hypertension. Comparison: None available. Technique: Real-time sonography was performed through the kidneys. Findings: Right kidney: 10.8 x 4.4 x 5.0 centimeters. Increased echogenicity of the renal parenchymal cortex suggestive for medical renal disease. Moderate right hydronephrosis. Echogenic calculi noted within the right kidney measuring up to 8 and 6 millimeters respectively which may represent obstructive calculi. Correlation with noncontrast CT scan may be helpful if indicated. Left Kidney: 9.3 x 4.3 x 4.2 centimeters. Increased echogenicity of the renal parenchymal cortex suggestive for medical renal disease. Upper pole hypoechoic cyst measuring 3.2 x 2.7 x 3.0 centimeters. Atherosclerotic calcification and plaque within the aorta. Visualized urinary bladder is preserved. Impression: Moderate right renal hydronephrosis with associated 8 and 6 millimeter calculi in the right renal collecting system which may represent obstructive calculi. Correlation with noncontrast CT scan may be helpful if clinically indicated. 3.2 centimeter upper pole left renal cyst. Increased echogenicity of the bilateral renal parenchymal cortices suggestive for medical renal disease. Atherosclerotic calcification and plaque in the aorta.
[2017-10-15 09:22] LABS: HEPATITIS B SURFACE AG Negative (NEGATIVE)
[2017-10-15 09:39] LABS: HEPATITIS C ANTIBODY NEGATIVE (NEGATIVE)
--- NOTE | 2017-10-15 09:42 | CP.PCM.PN ---
Subjective - Date & Time of Evaluation Date of Evaluation: 10/15/17 Time of Evaluation: 09:41 - Subjective Subjective: pt is seen and examined, follow up consult is dictated #[id number] renal function is stable will need urology evaluation for rt hydro and calculi Objective - Vital Signs/Intake and Output Vital Signs (last 24 hours): Temp Pulse Resp BP Pulse Ox 98.4 F 75 20 165/72 H 97 10/15/17 07:00 10/15/17 07:38 10/15/17 07:00 10/15/17 07:00 10/15/17 07:00 Intake and Output: 10/15/17 10/15/17 06:59 18:59 Intake Total 950 Balance 950 - Medications Medications: Current Medications Amlodipine Besylate (Norvasc) 5 mg PO DAILY [facility] Last Admin: 10/14/17 11:45 Dose: 5 mg Aspirin (Aspirin Chewable) 81 mg PO DAILY [facility] [place] Last Admin: 10/14/17 11:09 Dose: Not Given Clopidogrel Bisulfate (Plavix) 75 mg PO DAILY [facility] [place] Glipizide (Glucotrol) 10 mg PO BID [facility] [place] Last Admin: 10/14/17 19:10 Dose: 10 mg Heparin Sodium (Porcine) (Heparin) 5,000 units SC Q8 [facility] [place] Last Admin: 10/15/17 06:20 Dose: 5,000 units Insulin Human Isoph/Insulin Regular (Novolin 70/30 (70/30 Units/Ml) 10 Ml) 0 units SC ACHS [facility] [place] PRN Reason: Protocol Last Admin: 10/15/17 08:16 Dose: Not Given Losartan Potassium (Cozaar) 100 mg PO DAILY [facility] [place] Last Admin: 10/14/17 09:16 Dose: 100 mg Metoprolol Tartrate (Lopressor) 50 mg PO BID [facility] [place] Last Admin: 10/14/17 18:11 Dose: 50 mg Pioglitazone HCl (Actos) 45 mg PO DAILY [facility] [place] Last Admin: 10/14/17 11:20 Dose: Not Given Rosuvastatin Calcium (Crestor) 5 mg PO HS [facility] [place] Last Admin: 10/14/17 21:34 Dose: 5 mg Sitagliptin Phosphate (Januvia) 50 mg PO DAILY [facility] [place] Last Admin: 10/14/17 11:21 Dose: Not Given - Labs Labs: 10/15/17 08:29 10/15/17 08:29 PT 12.8 SECONDS (9.7-12.2) H 10/13/17 05:10 INR 1.2 10/13/17 05:10 APTT 48 SECONDS (21-34) H D 10/14/17 11:23
[2017-10-15 09:43] LABS: HEPATITIS A IGM NEGATIVE (NEGATIVE); HEPATITIS B CORE AB NEGATIVE (NEGATIVE)
[2017-10-15] MEDS: (Novolog) Insulin Aspart, Recombinant 100 u/ml 10 ml vial SC SCH ×3 (12:58→21:36)
--- NOTE | 2017-10-15 13:36 | CP.PCM.PN ---
Subjective - Date & Time of Evaluation Date of Evaluation: 10/15/17 Time of Evaluation: 13:10 - Subjective Subjective: Patient comfortable. No chest pain, getiing oob to go to bathroom no further shortness of breath Discussed with Dr. Mabry. Patient has 70-80% calscified LAD lesion. Will need PCI and/or atherectomy Dr. Combs's consult noted and appreciated. renal u/s shows R hydronephrosis with probably obstructive calculi in the R renal collecting system Will need urology eval from 's urologist Objective - Vital Signs/Intake and Output Vital Signs (last 24 hours): Temp Pulse Resp BP Pulse Ox 98.4 F 74 20 159/67 H 97 10/15/17 07:00 10/15/17 09:50 10/15/17 07:00 10/15/17 09:50 10/15/17 07:00 Intake and Output: 10/15/17 10/15/17 06:59 18:59 Intake Total 950 Balance 950 - Medications Medications: Current Medications Amlodipine Besylate (Norvasc) 5 mg PO DAILY [facility] Last Admin: 10/15/17 09:49 Dose: 5 mg Aspirin (Aspirin Chewable) 81 mg PO DAILY [facility] Last Admin: 10/15/17 09:49 Dose: 81 mg Clopidogrel Bisulfate (Plavix) 75 mg PO DAILY [facility] Last Admin: 10/15/17 09:48 Dose: 75 mg Glipizide (Glucotrol) 10 mg PO BID [facility] Last Admin: 10/15/17 10:56 Dose: Not Given Heparin Sodium (Porcine) (Heparin) 5,000 units SC Q8 [facility] Last Admin: 10/15/17 06:20 Dose: 5,000 units Insulin Aspart (Novolog) 0 unit SC ACHS [facility] PRN Reason: Protocol Last Admin: 10/15/17 12:58 Dose: 3 units Losartan Potassium (Cozaar) 100 mg PO DAILY [facility] Last Admin: 10/15/17 10:00 Dose: 100 mg Metoprolol Tartrate (Lopressor) 50 mg PO BID [facility] Last Admin: 10/15/17 09:49 Dose: 50 mg Pioglitazone HCl (Actos) 45 mg PO DAILY [facility] Last Admin: 10/15/17 10:00 Dose: 45 mg Rosuvastatin Calcium (Crestor) 5 mg PO HS [facility] Last Admin: 10/14/17 21:34 Dose: 5 mg Sitagliptin Phosphate (Januvia) 50 mg PO DAILY [facility] Last Admin: 10/15/17 09:48 Dose: 50 mg - Labs Labs: 10/15/17 08:29 10/15/17 08:29 PT 12.8 SECONDS (9.7-12.2) H 10/13/17 05:10 INR 1.2 10/13/17 05:10 APTT 48 SECONDS (21-34) H D 10/14/17 11:23 Assessment and Plan (1) NSTEMI (non-ST elevated myocardial infarction) Assessment & Plan: Patient had cardiac cath- single vessel CAD will need stent and/or atherectomy Status: Acute (2) Type 2 diabetes mellitus with hyperglycemia Assessment & Plan: on Accucheck and on oral hypoglycemic agents with inslin coverage as needed Status: Chronic (3) Hypertension Assessment & Plan: fluctuating. Status: Chronic (4) Hyperlipidemia Status: Chronic (5) Prerenal azotemia Assessment & Plan: continue statin Status: Acute
--- NOTE | 2017-10-15 16:38 | CARD ---
APPROVED REPORT Date of service: 10/12/2017 EKG Measurement Heart [id number] <Conclusion> Normal sinus rhythm Normal ECG
--- NOTE | 2017-10-15 17:20 | CARD ---
APPROVED REPORT Date of service: 10/15/2017 EXAM: Two-dimensional and M-mode echocardiogram with Doppler and color Doppler. Other Information Quality : GoodRhythm : INDICATION Dyspnea Non STEMI RISK FACTORS Hypertension Hyperlipidemia Diabetes 2D DIMENSIONS IVSd1.3 (0.7-1.1cm)LVDd4.0 (3.9-5.9cm) PWd1.1 (0.7-1.1cm)LVDs2.8 (2.5-4.0cm) FS (%) 29.5 %LVEF (%)57.0 (>50%) M-Mode DIMENSIONS Left Atrium (MM)3.98 (2.5-4.0cm)IVSd1.26 (0.7-1.1cm) Aortic Root3.17 (2.2-3.7cm)LVDd4.25 (4.0-5.6cm) Aortic Cusp Exc.1.97 (1.5-2.0cm)PWd0.57 (0.7-1.1cm) FS (%) 43 %LVDs2.44 (2.0-3.8cm) LVEF (%)60 (>50%) Mitral Valve MV E Bbfawaia07.8cm/sMV A Xnymjdkk896.0cm/sE/A ratio0.7 TDI E/Lateral E'0.0E/Medial E'0.0 Tricuspid Valve TR Peak [id number]/sTR Peak Gr.32uyEfNINP08ptPa LEFT VENTRICLE The left ventricle is normal size. There is normal left ventricular wall thickness. The left ventricular function is normal. The left ventricular ejection fraction is within the normal range.61% No regional wall motion abnormalities noted. Transmitral Doppler flow pattern is Grade I-abnormal relaxation pattern. No left ventricle thrombus noted on this study. There is no ventricular septal defect visualized. There is no left ventricular aneurysm. There is no mass noted in the left ventricle. RIGHT VENTRICLE The right ventricle is normal size. There is normal right ventricular wall thickness. The right ventricular systolic function is normal. ATRIA The left atrium size is normal. The right atrium size is normal. The interatrial septum is intact with no evidence for an atrial septal defect. AORTIC VALVE The aortic valve is normal in structure and function. No aortic regurgitation is present. There is no aortic valvular stenosis. There is no aortic valvular vegetation. MITRAL VALVE The mitral valve is normal in structure and function. There is no evidence of mitral valve prolapse. There is no mitral valve stenosis. There is no mitral valve regurgitation noted. TRICUSPID VALVE The tricuspid valve is normal in structure and function. There is no tricuspid valve regurgitation noted. There is mild tricuspid valve prolapse or vegetation. There is no tricuspid valve stenosis. PULMONIC VALVE The pulmonary valve is normal in structure and function. There is no pulmonic valvular regurgitation. There is no pulmonic valvular stenosis. GREAT VESSELS The aortic root is normal in size. The ascending aorta is normal in size. The pulmonary artery is normal. The IVC is normal in size and collapses >50% with inspiration. PERICARDIAL EFFUSION The pericardium appears normal. There is no pleural effusion. <Conclusion> The left ventricular function is normal. Transmitral Doppler flow pattern is Grade I-abnormal relaxation pattern. Normal Doppler.
--- NOTE | 2017-10-16 01:31 | PN ---
Copied To: Abel Honeycutt MD Attending MD: Abel Honeycutt MD DATE: 10/15/2017 FOLLOWUP RENAL CONSULTATION LOCATION: The patient is located in room 568, bed A. REQUESTED BY: Cande Alicia MD REASON FOR FOLLOWUP: Chronic kidney disease, status post cardiac cath, for possible PCI this week. SUBJECTIVE: Mrs. Zuleta is a 76-year-old elderly very pleasant female with a past medical history significant for longstanding hypertension, diabetes, hyperlipidemia, was found to have increased BUN and creatinine on admission. The patient underwent cardiac cath for chest pain and shortness of breath. The patient will need PCI as per the plate embosser, Dr. Andry Mabry, sometime this week. The patient is feeling much better, not in acute distress. Denies any headache or dizziness. Denies any chest pain or palpitation. No fever. No cough. The patient denies any chest pain or palpitation. No fever. No cough. No abdominal pain. No nausea, vomiting, or diarrhea. PHYSICAL EXAMINATION: VITAL SIGNS: As follows: Blood pressure this morning 159/67, pulse 74, respiration 20, temperature 98, saturation 99%. Height 5 feet 3 inches. Weight is 140 pounds. GENERAL: Mrs. Zuleta is a 76-year-old elderly female, moderately built, moderately nourished, not in acute distress. HEENT: Pupils normal and reactive to light and accommodation. Conjunctivae pink. Sclerae anicteric. Tongue is moist and trachea is midline. LUNGS: Symmetric on both sides. Bilateral breath sounds present. Clear to auscultation. CARDIOVASCULAR SYSTEM: [place] at the fifth intercostal space, midclavicular line. S1, S2 audible. No murmur or gallop. ABDOMEN: Normal in appearance, soft, tympanitic. No guarding. No rigidity. No hepatosplenomegaly. CENTRAL NERVOUS SYSTEM: The patient is alert, awake, oriented x3. Nonfocal neuro examination. Cranial nerves II-XII grossly intact. Sensory and motor system is within normal limit. EXTREMITIES: No cyanosis, no clubbing, no edema. CURRENT MEDICATIONS: Include as follows: Actos 45 mg p.o. daily, aspirin 81 mg p.o. daily, Cozaar 100 mg p.o. daily, Crestor 5 mg p.o. at bedtime, Glucotrol 10 mg p.o. b.i.d., subcu heparin 5000 units every 8 hours, Januvia 50 mg p.o. daily, Lopressor 50 mg p.o. b.i.d., amlodipine 5 mg daily, NovoLog insulin per sliding scale, Plavix 75 mg p.o. daily. LABORATORY DATA: Include as follows as of 10/15/2017: WBC 4.9, hemoglobin 10.9, hematocrit 31.9, platelets 304. Sodium 144, potassium 3.6, chloride 102, CO2 of 28, BUN 20, creatinine 1.8, glucose 142, calcium 10.2. Total bili 0.4, AST 30, ALT 47, alkaline phosphatase 95, total protein 7, albumin is 4.3. IgM antibody is negative. Hepatitis B surface antigen is negative. Hepatitis B core antibody is negative. Hepatitis C antibody is negative. Ultrasound of the kidneys as of 10/14/2017: Right kidney 10.8 x 4.4 x 5 cm, increased echogenicity of the renal parenchyma cortex suggestive of medical renal disease, moderate right hydronephrosis, echogenic calculi noted within the right kidney measuring 8 to 6 mm respectively which may represent obstructive calculi. Correlation with noncontrast CT scan may be helpful if indicated. Left kidney 9.3 x 4.3 x 4.2 cm, increased echogenicity of the renal parenchymal cortex suggestive of medical renal disease, upper pole hypoechoic cyst measuring 3.2 x 2.7 x 3 cm, atherosclerotic calcification and plaque within aorta, visualized urinary bladder is preserved. Impression: Moderate right renal hydronephrosis with associated 8 to 6 mm calculi in the right renal collecting system. ASSESSMENT: In summary, Mrs. Zuleta is a 76-year-old elderly female with a history of hypertension, diabetes, hyperlipidemia, was admitted with shortness of breath and elevated troponin levels and underwent cardiac catheterization yesterday and found to have mid left anterior descending artery calcific 70% to 80% stenosis with increased blood urea nitrogen and right moderate hydronephrosis with obstructing calculi. 1. Renal failure, most likely acute on chronic kidney disease, cannot rule out acute renal failure secondary to obstructive uropathy less likely. 2. Hydronephrosis. 3. Renal calculi with obstructive uropathy. 4. Hypertension. 5. Diabetes. 6. Coronary artery disease, status post cardiac catheterization consistent with mid left anterior descending calcific 70% to 80% stenosis. PLAN: We will request urology consult for possible evaluation of the right hydronephrosis. May need cystoscopy and stent placement. We will repeat BMP in the a.m. Continue her current medications. Follow up with Cardiology for further intervention and PCI of LAD. We will follow with you. Thank you for allowing me to participate in your patient's care. Abel Honeycutt MD
--- NOTE | 2017-10-16 06:47 | CP.PCM.PN ---
Subjective - Date & Time of Evaluation Date of Evaluation: 10/15/17 Time of Evaluation: 18:10 - Subjective Subjective: Patient s/p cath Single vessel CAD For LAD stenting at [facility] Will make arrrangements Renal function stable Objective - Vital Signs/Intake and Output Vital Signs (last 24 hours): Temp Pulse Resp BP Pulse Ox 98.6 F 76 20 174/75 H 96 10/15/17 23:13 10/16/17 06:04 10/15/17 23:13 10/16/17 06:04 10/15/17 23:13 Intake and Output: 10/15/17 10/16/17 18:59 06:59 Intake Total 600 Balance 600 - Medications Medications: Current Medications Amlodipine Besylate (Norvasc) 5 mg PO DAILY [facility] Last Admin: 10/16/17 06:10 Dose: 5 mg Aspirin (Aspirin Chewable) 81 mg PO DAILY [facility] Last Admin: 10/15/17 09:49 Dose: 81 mg Clopidogrel Bisulfate (Plavix) 75 mg PO DAILY [facility] Last Admin: 10/15/17 09:48 Dose: 75 mg Glipizide (Glucotrol) 10 mg PO BID [facility] Last Admin: 10/15/17 17:23 Dose: 10 mg Heparin Sodium (Porcine) (Heparin) 5,000 units SC Q8 [facility] Last Admin: 10/16/17 06:10 Dose: 5,000 units Insulin Aspart (Novolog) 0 unit SC ACHS [facility] PRN Reason: Protocol Last Admin: 10/15/17 21:36 Dose: Not Given Losartan Potassium (Cozaar) 100 mg PO DAILY [facility] Last Admin: 10/16/17 06:10 Dose: 100 mg Metoprolol Tartrate (Lopressor) 50 mg PO BID [facility] Last Admin: 10/16/17 06:10 Dose: 50 mg Pioglitazone HCl (Actos) 45 mg PO DAILY [facility] Last Admin: 10/15/17 10:00 Dose: 45 mg Rosuvastatin Calcium (Crestor) 5 mg PO HS [facility] Last Admin: 10/15/17 21:40 Dose: 5 mg Sitagliptin Phosphate (Januvia) 50 mg PO DAILY [facility] Last Admin: 10/15/17 09:48 Dose: 50 mg - Labs Labs: 10/15/17 08:29 10/15/17 08:29 PT 12.8 SECONDS (9.7-12.2) H 10/13/17 05:10 INR 1.2 10/13/17 05:10 APTT 48 SECONDS (21-34) H D 10/14/17 11:23 Assessment and Plan - Assessment and Plan (Free Text) Assessment: Patient s/p cath Single vessel CAD For LAD stenting at [facility] Will make arrrangements Renal function stable Will continue hydration
[2017-10-16] MEDS: (Novolog) Insulin Aspart, Recombinant 100 u/ml 10 ml vial SC SCH ×4 (07:30→21:32)
--- NOTE | 2017-10-16 11:24 | CP.PCM.PN ---
<Gill Smith - Last Filed: 10/16/17 13:01> Subjective - Date & Time of Evaluation Date of Evaluation: 10/16/17 Time of Evaluation: :22 - Subjective Subjective: Cardiology Progress Note - Dr Mabry Patient seen and examined at bedside. Per nursing no acute events overnight. Patient is for PCI tomorrow afternoon at [facility]. Denies chest pain or dyspnea. Objective - Vital Signs/Intake and Output Vital Signs (last 24 hours): Temp Pulse Resp BP Pulse Ox 98.7 F 72 20 153/72 H 97 10/16/17 07:00 10/16/17 10:52 10/16/17 07:00 10/16/17 10:52 10/16/17 07:00 Intake and Output: 10/16/17 10/16/17 06:59 18:59 Intake Total 600 Balance 600 - Medications Medications: Current Medications Amlodipine Besylate (Norvasc) 5 mg PO DAILY [facility] Last Admin: 10/16/17 06:10 Dose: 5 mg Aspirin (Aspirin Chewable) 81 mg PO DAILY [facility] Last Admin: 10/16/17 10:49 Dose: 81 mg Clopidogrel Bisulfate (Plavix) 75 mg PO DAILY [facility] Last Admin: 10/16/17 10:50 Dose: 75 mg Glipizide (Glucotrol) 10 mg PO BID [facility] Last Admin: 10/16/17 10:49 Dose: 10 mg Heparin Sodium (Porcine) (Heparin) 5,000 units SC Q8 [facility] Last Admin: 10/16/17 06:10 Dose: 5,000 units Insulin Aspart (Novolog) 0 unit SC ACHS [facility] PRN Reason: Protocol Last Admin: 10/16/17 07:30 Dose: Not Given Losartan Potassium (Cozaar) 100 mg PO DAILY [facility] Last Admin: 10/16/17 06:10 Dose: 100 mg Metoprolol Tartrate (Lopressor) 50 mg PO BID [facility] Last Admin: 10/16/17 06:10 Dose: 50 mg Pioglitazone HCl (Actos) 45 mg PO DAILY [facility] Last Admin: 10/16/17 10:49 Dose: 45 mg Rosuvastatin Calcium (Crestor) 5 mg PO HS [facility] Last Admin: 10/15/17 21:40 Dose: 5 mg Sitagliptin Phosphate (Januvia) 50 mg PO DAILY [facility] Last Admin: 08/22/18 10:49 Dose: 50 mg - Labs Labs: 10/15/17 08:29 10/15/17 08:29 PT 12.8 SECONDS (9.7-12.2) H 10/13/17 05:10 INR 1.2 10/13/17 05:10 APTT 48 SECONDS (21-34) H D 10/14/17 11:23 - Constitutional Appears: Well, No Acute Distress - Head Exam Head Exam: ATRAUMATIC, NORMAL INSPECTION - Eye Exam Eye Exam: EOMI - Respiratory Exam Respiratory Exam: Clear to Ausculation Bilateral, NORMAL BREATHING PATTERN. absent: Rales, Rhonchi, Wheezes - Cardiovascular Exam Cardiovascular Exam: REGULAR RHYTHM, +S1, +S2 - GI/Abdominal Exam GI & Abdominal Exam: Soft - Extremities Exam Extremities Exam: Full ROM - Neurological Exam Neurological Exam: Alert, Awake, Oriented x3 - Psychiatric Exam Psychiatric exam: Normal Affect, Normal Mood - Skin Skin Exam: Dry, Normal Color, Warm Assessment and Plan - Assessment and Plan (Free Text) Assessment: A/P: Patient is a 76 y/o female with past medical history of diabetic, with known history of HTN, hyperlipiedemia who was admitted because of shortness of breath. Patient admitted for NSTEMI NSTEMI -Stable, afebrile -Continue ASA 81mg and Plavix 75mg -Cardiac catherization 10/16 showed L Main: Patent, LAD/Diags: Mid LAD calcific 70-80% stenosis, L Cx/RCA: Patent -Patient to be transferred to [facility] tomorrow for PCI -NPO after breakfast -Plan discussed with Dr Mabry Renal Calculi with obstructive Uropathy -Urology consult requested Hypertension -Continue Norvasc 5mg PO daily, Metoprolol 50mg PO BID, Cozaar 100mg PO daily Diabetes Mellitus -Continue Januvia 50mg PO daily, Glipizide 10mg PO BID, Actos 45mg PO daily Hyperlipidemia -Crestor 5mg PO HS Chronic Kidney Disease -Renal workup in progress Gill Smith DO PGY-2 <Andry Mabry - Last Filed: 10/16/17 23:18> Objective - Vital Signs/Intake and Output Vital Signs (last 24 hours): Temp Pulse Resp BP Pulse Ox 97.6 F 67 20 118/64 98 10/16/17 15:00 10/16/17 21:31 10/16/17 15:00 10/16/17 21:31 10/16/17 15:00 Intake and Output: 10/16/17 10/17/17 18:59 06:59 Intake Total 700 Balance 700 - Medications Medications: Current Medications Amlodipine Besylate (Norvasc) 5 mg PO DAILY [facility] Last Admin: 10/16/17 10:00 Dose: Not Given Aspirin (Aspirin Chewable) 81 mg PO DAILY [facility] Last Admin: 10/16/17 10:49 Dose: 81 mg Clopidogrel Bisulfate (Plavix) 75 mg PO DAILY [facility] Last Admin: 10/16/17 10:50 Dose: 75 mg Glipizide (Glucotrol) 10 mg PO BID [facility] Last Admin: 10/16/17 17:05 Dose: 10 mg Heparin Sodium (Porcine) (Heparin) 5,000 units SC Q8 [facility] Last Admin: 10/16/17 21:26 Dose: 5,000 units Insulin Aspart (Novolog) 0 unit SC ACHS [facility] PRN Reason: Protocol Last Admin: 10/16/17 21:32 Dose: Not Given Losartan Potassium (Cozaar) 100 mg PO DAILY [facility] Last Admin: 10/16/17 10:00 Dose: Not Given Metoprolol Tartrate (Lopressor) 50 mg PO BID [facility] Last Admin: 10/16/17 17:05 Dose: 50 mg Pioglitazone HCl (Actos) 45 mg PO DAILY [facility] Last Admin: 10/16/17 10:49 Dose: 45 mg Rosuvastatin Calcium (Crestor) 5 mg PO HS [facility] Last Admin: 10/16/17 21:26 Dose: 5 mg Sitagliptin Phosphate (Januvia) 50 mg PO DAILY [facility] Last Admin: 10/16/17 10:49 Dose: 50 mg - Labs Labs: 10/15/17 08:29 10/15/17 08:29 PT 12.8 SECONDS (9.7-12.2) H 10/13/17 05:10 INR 1.2 10/13/17 05:10 APTT 48 SECONDS (21-34) H D 10/14/17 11:23 Assessment and Plan - Assessment and Plan (Free Text) Assessment: Patient seen and evaluated personally by la Plan of care d/w the resident and as documented
--- NOTE | 2017-10-16 16:15 | CP.PCM.PN ---
Subjective - Date & Time of Evaluation Date of Evaluation: 10/16/17 Time of Evaluation: 15:45 - Subjective Subjective: Patient comfortable, no complaints scheduled for stent placement tomorrow at [place]. Continue current meds Objective - Vital Signs/Intake and Output Vital Signs (last 24 hours): Temp Pulse Resp BP Pulse Ox 97.6 F 65 20 148/68 98 10/16/17 15:00 10/16/17 15:00 10/16/17 15:00 10/16/17 15:00 10/16/17 15:00 Intake and Output: 10/16/17 10/16/17 06:59 18:59 Intake Total 600 Balance 600 - Medications Medications: Current Medications Amlodipine Besylate (Norvasc) 5 mg PO DAILY [facility] Last Admin: 10/16/17 10:00 Dose: Not Given Aspirin (Aspirin Chewable) 81 mg PO DAILY [facility] Last Admin: 10/16/17 10:49 Dose: 81 mg Clopidogrel Bisulfate (Plavix) 75 mg PO DAILY [facility] Last Admin: 10/16/17 10:50 Dose: 75 mg Glipizide (Glucotrol) 10 mg PO BID [facility] Last Admin: 10/16/17 10:49 Dose: 10 mg Heparin Sodium (Porcine) (Heparin) 5,000 units SC Q8 [facility] Last Admin: 10/16/17 13:01 Dose: 5,000 units Insulin Aspart (Novolog) 0 unit SC ACHS [facility] PRN Reason: Protocol Last Admin: 10/16/17 12:00 Dose: 2 units Losartan Potassium (Cozaar) 100 mg PO DAILY [facility] Last Admin: 10/16/17 10:00 Dose: Not Given Metoprolol Tartrate (Lopressor) 50 mg PO BID [facility] Last Admin: 10/16/17 10:00 Dose: Not Given Pioglitazone HCl (Actos) 45 mg PO DAILY [facility] Last Admin: 10/16/17 10:49 Dose: 45 mg Rosuvastatin Calcium (Crestor) 5 mg PO HS [facility] Last Admin: 10/15/17 21:40 Dose: 5 mg Sitagliptin Phosphate (Januvia) 50 mg PO DAILY [facility] Last Admin: 10/16/17 10:49 Dose: 50 mg - Labs Labs: 10/15/17 08:29 10/15/17 08:29 PT 12.8 SECONDS (9.7-12.2) H 10/13/17 05:10 INR 1.2 10/13/17 05:10 APTT 48 SECONDS (21-34) H D 10/14/17 11:23 - Constitutional Appears: No Acute Distress - Eye Exam Eye Exam: Normal appearance - ENT Exam ENT Exam: Mucous Membranes Moist, Normal Exam - Neck Exam Neck Exam: Normal Inspection - Respiratory Exam Respiratory Exam: Clear to Ausculation Bilateral, NORMAL BREATHING PATTERN - Cardiovascular Exam Cardiovascular Exam: REGULAR RHYTHM, +S1, +S2 - GI/Abdominal Exam GI & Abdominal Exam: Soft, Normal Bowel Sounds - Extremities Exam Extremities Exam: Normal Inspection - Neurological Exam Neurological Exam: Alert, Awake, Oriented x3 - Psychiatric Exam Psychiatric exam: Normal Affect, Normal Mood - Skin Skin Exam: Dry, Intact, Normal Color, Warm Assessment and Plan (1) NSTEMI (non-ST elevated myocardial infarction) Assessment & Plan: scheduled for stent tomorrow continue current meds Status: Acute (2) Type 2 diabetes mellitus with hyperglycemia Assessment & Plan: accuchecks reasonable on current meds Status: Chronic (3) Hypertension Assessment & Plan: fluctuating. 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 Urology consultation requested. Status: Chronic
--- NOTE | 2017-10-16 20:40 | CP.PCM.PN ---
Subjective - Date & Time of Evaluation Date of Evaluation: 10/16/17 Time of Evaluation: 20:40 - Subjective Subjective: pt is seen and examined, follow up consult is dictated #[id number] start mucomyst 600 mg po bid, ivf 1.2 ns at 70 ml/hr, cbc, bmp in am Objective - Vital Signs/Intake and Output Vital Signs (last 24 hours): Temp Pulse Resp BP Pulse Ox 97.6 F 66 20 148/68 98 10/16/17 15:00 10/16/17 17:45 10/16/17 15:00 10/16/17 15:00 10/16/17 15:00 - Medications Medications: Current Medications Amlodipine Besylate (Norvasc) 5 mg PO DAILY [facility] Last Admin: 10/16/17 10:00 Dose: Not Given Aspirin (Aspirin Chewable) 81 mg PO DAILY [facility] Last Admin: 10/16/17 10:49 Dose: 81 mg Clopidogrel Bisulfate (Plavix) 75 mg PO DAILY [facility] Last Admin: 10/16/17 10:50 Dose: 75 mg Glipizide (Glucotrol) 10 mg PO BID [facility] Last Admin: 10/16/17 17:05 Dose: 10 mg Heparin Sodium (Porcine) (Heparin) 5,000 units SC Q8 [facility] Last Admin: 10/16/17 13:01 Dose: 5,000 units Insulin Aspart (Novolog) 0 unit SC ACHS [facility] PRN Reason: Protocol Last Admin: 10/16/17 17:02 Dose: Not Given Losartan Potassium (Cozaar) 100 mg PO DAILY [facility] Last Admin: 10/16/17 10:00 Dose: Not Given Metoprolol Tartrate (Lopressor) 50 mg PO BID [facility] Last Admin: 10/16/17 17:05 Dose: 50 mg Pioglitazone HCl (Actos) 45 mg PO DAILY [facility] Last Admin: 10/16/17 10:49 Dose: 45 mg Rosuvastatin Calcium (Crestor) 5 mg PO HS [facility] Last Admin: 10/15/17 21:40 Dose: 5 mg Sitagliptin Phosphate (Januvia) 50 mg PO DAILY [facility] Last Admin: 10/16/17 10:49 Dose: 50 mg - Labs Labs: 10/15/17 08:29 10/15/17 08:29 PT 12.8 SECONDS (9.7-12.2) H 08/19/18 05:10 INR 1.2 10/13/17 05:10 APTT 48 SECONDS (21-34) H D 10/14/17 11:23
[2017-10-17 00:17] LABS: ALBUMIN (PEP) 3.8 g/dL (3.8-4.8); ALPHA-1-GLOBULIN (PEP) 0.4 g/dL (0.2-0.3)
--- NOTE | 2017-10-17 02:59 | PN ---
Copied To: Abel Honeycutt MD Attending MD: Abel Honeycutt MD DATE: 10/16/2017 FOLLOWUP RENAL CONSULTATION LOCATION: The patient is located in room 568, bed A. REQUESTED BY: Cande Alicia MD REASON FOR FOLLOWUP: Renal failure, for further evaluation. SUBJECTIVE: Mrs. Zuleta is a 76-year-old elderly -[place] female with a past medical history significant for longstanding hypertension, diabetes, and hyperlipidemia who was admitted with chief complaints of shortness of breath, and the patient underwent cardiac cath for elevated troponin levels. The patient is scheduled for angioplasty in [facility] tomorrow by Cardiology. The patient is not in distress. No chest pain. No palpitation. No fever. No cough. No abdominal pain. No nausea, vomiting, or diarrhea. PHYSICAL EXAMINATION: VITAL SIGNS: As follows: Blood pressure 148/68, pulse 65, respirations 18, temperature 97.6, and saturation 98%. Height 5 feet 3 inches, weight is 140 pounds. GENERAL: Mrs. Zuleta is a 76-year-old elderly female, moderately built, moderately nourished, not in distress. HEENT: Pupils are normal and reactive to light and accommodation. Conjunctivae pink. Sclerae are anicteric. Tongue is moist. Trachea is midline. LUNGS: Symmetric on both sides. Bilateral breath sounds present. Clear to auscultation. CARDIOVASCULAR SYSTEM: [place] at the fifth intercostal space, midclavicular line. S1, S2 audible. No murmur or gallop. ABDOMEN: Normal in appearance, soft, tympanitic. No guarding. No rigidity. No hepatosplenomegaly. CENTRAL NERVOUS SYSTEM: The patient is alert, awake, and oriented x3. Nonfocal neuro examination. Cranial nerves II through XII grossly intact. Sensory and motor system is within normal limits. EXTREMITIES: No cyanosis, no clubbing, no edema. MEDICATIONS: Her current medications include as follows: Actos 45 mg p.o. daily, aspirin 81 mg daily, Cozaar 100 mg p.o. daily, Crestor 5 mg p.o. at bedtime, Glucotrol 10 mg b.i.d., subcu heparin 5000 every 8 hours, Januvia 50 mg p.o. daily, metoprolol 50 mg b.i.d., amlodipine 5 mg daily, NovoLog for sliding scale, and Plavix 75 mg daily. LABORATORY DATA: No new labs are available for today. Her Accu-Cheks, 76, 229, 71, and 137. ASSESSMENT AND PLAN: In summary, Mrs. Zuleta is a 76-year-old elderly -F[place]ian female with a history of longstanding hypertension, diabetes, hyperlipidemia, shortness of breath, elevated troponin levels, and right-sided hydronephrosis with two calculi; 6 and 8 mm with possible obstruction. 1. Renal failure, most likely acute on chronic kidney disease. 2. Right-sided hydronephrosis. 3. Nephrocalcinosis. 4. Hypertension. 5. Coronary artery disease, status post cardiac cath. PLAN: Repeat CBC, BMP in a.m. and also start IV fluids, half-normal saline at 70 mL/hour and also Mucomyst 600 mg p.o. b.i.d. We will follow with you. Thank you for allowing me to participate in your patient's care; for possible PCI in [facility] tomorrow by Cardiology. Abel Honeycutt MD
[2017-10-17 07:25] LABS: HEMOGLOBIN 10.3 g/dL (11.0-16.0); MEAN CELL VOLUME 94.2 fL (81.0-99.0); MEAN CORPUSCULAR HEMOGLOBIN 31.8 pg (27.0-31.0); MEAN CORPUSCULAR HGB CONC 33.7 g/dL (33.0-37.0); MEAN PLATELET VOLUME 7.1 fL (7.2-11.7); RBC 3.24 Mil/uL (3.80-5.20); RED CELL DISTRIBUTION WIDTH 13.5 % (11.5-14.5); WHITE BLOOD COUNT 4.5 K/uL (4.8-10.8)
[2017-10-17] MEDS: (Novolog) Insulin Aspart, Recombinant 100 u/ml 10 ml vial SC SCH ×4 (07:33→21:53)
[2017-10-17 07:35] LABS: ALB/GLOB RATIO 1.2 (1.0-2.1); ALBUMIN 4.2 g/dL (3.5-5.0)
[2017-10-17] MEDS ORDERED: Acetylcysteine 20% Inhal Soln (4ml) INH ONE (07:45)
[2017-10-17 07:54] VITALS: RESP 20
[2017-10-17] MEDS: Sodium Chloride 0.9% 1,000 ML IV SCH ×2 (08:00→21:46)
--- NOTE | 2017-10-17 15:46 | CP.PCM.PN ---
Subjective - Date & Time of Evaluation Date of Evaluation: 10/17/17 Time of Evaluation: 15:43 - Subjective Subjective: Patient s/p FFR of the mid LAD lesion Final FFR value after Adenosisne infusion is 0.97 suggestive of non obstructive lesion No stent needed Recommened medical management Ambulate after 7.30pm tonight Hydration Labs in am Can d/c patient home Saturday evening or saturday am once renally cleared Objective - Vital Signs/Intake and Output Vital Signs (last 24 hours): Temp Pulse Resp BP Pulse Ox 98.6 F 75 20 166/72 H 98 10/17/17 07:00 10/17/17 10:34 10/17/17 07:00 10/17/17 10:34 10/17/17 07:00 Intake and Output: 10/17/17 10/17/17 06:59 18:59 Intake Total 700 Balance 700 - Medications Medications: Current Medications Amlodipine Besylate (Norvasc) 5 mg PO DAILY [facility] Last Admin: 10/17/17 10:34 Dose: 5 mg Aspirin (Aspirin Chewable) 81 mg PO DAILY [facility] Last Admin: 10/17/17 10:33 Dose: 81 mg Clopidogrel Bisulfate (Plavix) 75 mg PO DAILY [facility] Last Admin: 10/17/17 10:33 Dose: 75 mg Glipizide (Glucotrol) 10 mg PO BID [facility] Last Admin: 10/17/17 10:02 Dose: Not Given Heparin Sodium (Porcine) (Heparin) 5,000 units SC Q8 [facility] Last Admin: 10/17/17 05:10 Dose: Not Given Sodium Chloride (Sodium Chloride 0.9%) 1,000 mls @ 60 mls/hr IV .[id number] [facility] Last Admin: 10/17/17 08:00 Dose: 60 mls/hr Insulin Aspart (Novolog) 0 unit SC ACHS [facility] PRN Reason: Protocol Last Admin: 10/17/17 07:33 Dose: Not Given Losartan Potassium (Cozaar) 100 mg PO DAILY [facility] Last Admin: 10/17/17 10:34 Dose: 100 mg Metoprolol Tartrate (Lopressor) 50 mg PO BID [facility] Last Admin: 10/17/17 10:34 Dose: 50 mg Pioglitazone HCl (Actos) 45 mg PO DAILY [facility] Last Admin: 10/17/17 10:02 Dose: Not Given Rosuvastatin Calcium (Crestor) 5 mg PO HS [facility] Last Admin: 10/16/17 21:26 Dose: 5 mg Sitagliptin Phosphate (Januvia) 25 mg PO DAILY [facility] - Labs Labs: 10/17/17 07:08 10/17/17 07:08 PT 12.8 SECONDS (9.7-12.2) H 10/13/17 05:10 INR 1.2 10/13/17 05:10 APTT 48 SECONDS (21-34) H D 10/14/17 11:23
--- NOTE | 2017-10-17 22:50 | CP.PCM.PN ---
Subjective - Date & Time of Evaluation Date of Evaluation: 10/17/17 Time of Evaluation: 20:40 - Subjective Subjective: follow up consult is dictated #[id number] Objective - Vital Signs/Intake and Output Vital Signs (last 24 hours): Temp Pulse Resp BP Pulse Ox 98.1 F 87 20 162/74 H 97 10/17/17 21:04 10/17/17 22:39 10/17/17 21:04 10/17/17 21:04 10/17/17 21:04 Intake and Output: 10/17/17 10/18/17 18:59 06:59 Intake Total 460 Balance 460 - Medications Medications: Current Medications Amlodipine Besylate (Norvasc) 5 mg PO DAILY [facility] Last Admin: 10/17/17 10:34 Dose: 5 mg Aspirin (Aspirin Chewable) 81 mg PO DAILY [facility] Last Admin: 10/17/17 10:33 Dose: 81 mg Clopidogrel Bisulfate (Plavix) 75 mg PO DAILY [facility] Last Admin: 10/17/17 10:33 Dose: 75 mg Glipizide (Glucotrol) 10 mg PO BID [facility] Last Admin: 10/17/17 21:45 Dose: 10 mg Heparin Sodium (Porcine) (Heparin) 5,000 units SC Q8 [facility] Last Admin: 10/17/17 21:44 Dose: 5,000 units Sodium Chloride (Sodium Chloride 0.9%) 1,000 mls @ 60 mls/hr IV .[id number] [facility] Last Admin: 10/17/17 21:46 Dose: 60 mls/hr Insulin Aspart (Novolog) 0 unit SC ACHS [facility] PRN Reason: Protocol Last Admin: 10/17/17 21:53 Dose: Not Given Losartan Potassium (Cozaar) 100 mg PO DAILY [facility] Last Admin: 10/17/17 10:34 Dose: 100 mg Metoprolol Tartrate (Lopressor) 50 mg PO BID [facility] Last Admin: 10/17/17 10:34 Dose: 50 mg Pioglitazone HCl (Actos) 45 mg PO DAILY [facility] Last Admin: 10/17/17 10:02 Dose: Not Given Rosuvastatin Calcium (Crestor) 5 mg PO HS [facility] Last Admin: 10/17/17 21:44 Dose: 5 mg Sitagliptin Phosphate (Januvia) 25 mg PO DAILY [facility] - Labs Labs: 10/17/17 07:08 10/17/17 07:08 PT 12.8 SECONDS (9.7-12.2) H 10/13/17 05:10 INR 1.2 10/13/17 05:10 APTT 48 SECONDS (21-34) H D 10/14/17 11:23
--- NOTE | 2017-10-18 03:18 | PN ---
Copied To: Abel Honeycutt MD Attending MD: Abel Honeycutt MD DATE: 10/17/2017REQUESTED BY: Cande Alicia MD LOCATION: The patient is located in room 568, bed A. REASON FOR FOLLOWUP: Renal failure for further evaluation and hydronephrosis on the right side and nephrolithiasis. HISTORY OF PRESENT ILLNESS: Mrs. Zuleta is a 76-year-old elderly female with a past medical history significant for longstanding hypertension, diabetes, hyperlipidemia, was admitted with the chief complaints of shortness of breath and found to have elevated troponin levels. The patient underwent cardiac cath, and now, the patient went this morning to [facility] for possible PCI. The patient returned this evening. After PCI, the patient denies any complaints. No chest pain. No palpitation. No fever. No cough. No abdominal pain. No nausea, vomiting, diarrhea. PHYSICAL EXAMINATION: VITAL SIGNS: As follows, blood pressure 162/74, pulse 66, respirations 20, temperature 98.1, saturation 97%. Height 5 feet 3 inches, weight is 140 pounds. GENERAL: Mrs. Zuleta is a 76-year-old elderly female, moderately built, moderately nourished. HEENT: Pupils normal, reactive to light and accommodation. Conjunctivae pink. Sclerae anicteric. Tongue is moist. Trachea is midline. LUNGS: Symmetric on both sides. Bilateral breath sounds present. Clear to auscultation. CVS: [place] at the fifth intercostal space and midclavicular line. S1, S2 audible. No murmur or gallop. ABDOMEN: Normal in appearance. Soft, tympanic. No guarding. No rigidity. No hepatosplenomegaly. WAXER FLOOR: The patient is alert, awake, oriented x3. Nonfocal neuro examination. Cranial nerves II-XII grossly intact. Sensory and motor system is within normal limits. EXTREMITIES: No cyanosis, no clubbing, no edema. CURRENT MEDICATIONS: Include as follows: Actos 45 mg p.o. daily, aspirin 81 mg daily, Cozaar 100 mg p.o. daily, Crestor 5 mg at bedtime, glipizide 10 mg p.o. b.i.d., subcu heparin 5000 units every 8 hours, Januvia 25 mg p.o. daily, Lopressor 50 mg p.o. b.i.d., amlodipine 5 mg p.o. daily, NovoLog insulin per sliding scale, Plavix 75 mg daily, and IV fluids normal saline at 60 mL per hour. LABORATORY DATA: Includes as follows: As of 10/17/2017, WBC 4.5, hemoglobin 10.3, hematocrit is 30.5, platelets 287. Sodium 142, potassium 3.8, chloride 102, CO 28, BUN 21, creatinine 2.1, glucose 157, calcium is 10. Total bili 0.3, AST 37, ALT 37, alkaline phosphatase 72, total protein 7.6, albumin is 4.2. ASSESSMENT AND PLAN: In summary, Mrs. Zuleta is a 76-year-old elderly female with history of longstanding hypertension, diabetes, hyperlipidemia, was admitted with shortness of breath and elevated troponin, status post cardiac cath and status post percutaneous coronary intervention today with increased BUN and creatinine, and ultrasound of kidneys consistent with right-sided hydronephrosis with nephrolithiasis. 1. Renal failure, most likely acute on chronic kidney disease. 2. Hydronephrosis. 3. Nephrolithiasis. 4. Hypertension. 5. Diabetes. 6. Coronary artery disease, status post cardiac cath and percutaneous coronary intervention. PLAN: Continue IV fluids tonight, and repeat BMP in a.m., and consider urology evaluation, Dr. Ave Garcia. The patient would like to follow up with Ave Garcia MD, with whom her is also following with Dr. Garcia. We will follow with you. Thank you for allowing me to participate in your patient's care. The patient may need cystoscopy and stenting on the right side by Urology. Abel Honeycutt MD
[2017-10-18] MEDS: (Novolog) Insulin Aspart, Recombinant 100 u/ml 10 ml vial SC SCH ×3 (07:18→17:36)
[2017-10-18 08:54] LABS: HEMOGLOBIN 9.8 g/dL (11.0-16.0); MEAN CELL VOLUME 94.8 fL (81.0-99.0); MEAN CORPUSCULAR HEMOGLOBIN 31.8 pg (27.0-31.0); MEAN CORPUSCULAR HGB CONC 33.5 g/dL (33.0-37.0); MEAN PLATELET VOLUME 7.2 fL (7.2-11.7); RBC 3.07 Mil/uL (3.80-5.20); RED CELL DISTRIBUTION WIDTH 13.8 % (11.5-14.5); WHITE BLOOD COUNT 4.2 K/uL (4.8-10.8)
[2017-10-18 09:10] LABS: CALCIUM 9.7 mg/dl (8.6-10.4)
--- NOTE | 2017-10-18 09:36 | CP.PCM.CON ---
Past Patient History - Infectious Disease Hx of Infectious Diseases: None - Past Medical History & Family History Past Medical History?: Yes - Past Social History Smoking Status: Never Smoked Chewing Tobacco Use: No Alcohol: None Drugs: Denies - CARDIAC Hx Hypercholesterolemia: Yes Hx Hypertension: Yes - PULMONARY Hx Respiratory Disorders: No - NEUROLOGICAL Hx Neurological Disorder: No - HEENT Hx Cataracts: Yes - RENAL Hx Chronic Kidney Disease: No - ENDOCRINE/METABOLIC Hx Diabetes Mellitus Type 2: Yes - HEMATOLOGICAL/ONCOLOGICAL Hx Blood Disorders: No - INTEGUMENTARY Hx Dermatological Problems: No - MUSCULOSKELETAL/RHEUMATOLOGICAL Hx Falls: Yes - GASTROINTESTINAL Hx Gastrointestinal Disorders: No - GENITOURINARY/GYNECOLOGICAL Hx Genitourinary Disorders: No - PSYCHIATRIC Hx Psychophysiologic Disorder: No Hx Substance Use: No - SURGICAL HISTORY Hx Surgeries: Yes Hx Hysterectomy: Yes - ANESTHESIA Hx Anesthesia: Yes Hx Anesthesia Reactions: No Meds Allergies/Adverse Reactions: Allergies Allergy/AdvReac Type Severity Reaction Status Date / Time metformin AdvReac Intermediate VOMITING Verified 10/16/17 16:22 - Medications Medications: Current Medications Amlodipine Besylate (Norvasc) 5 mg PO DAILY [facility] Last Admin: 10/17/17 10:34 Dose: 5 mg Aspirin (Aspirin Chewable) 81 mg PO DAILY [facility] Last Admin: 10/17/17 10:33 Dose: 81 mg Clopidogrel Bisulfate (Plavix) 75 mg PO DAILY [facility] Last Admin: 10/17/17 10:33 Dose: 75 mg Glipizide (Glucotrol) 10 mg PO BID [facility] Last Admin: 10/17/17 21:45 Dose: 10 mg Sodium Chloride (Sodium Chloride 0.9%) 1,000 mls @ 60 mls/hr IV .[id number] [facility] Last Admin: 10/17/17 21:46 Dose: 60 mls/hr Insulin Aspart (Novolog) 0 unit SC ACHS [facility] PRN Reason: Protocol Last Admin: 10/18/17 07:18 Dose: Not Given Losartan Potassium (Cozaar) 100 mg PO DAILY [facility] Last Admin: 10/17/17 10:34 Dose: 100 mg Metoprolol Tartrate (Lopressor) 50 mg PO BID [facility] Last Admin: 10/17/17 22:49 Dose: Not Given Pioglitazone HCl (Actos) 45 mg PO DAILY [facility] Last Admin: 10/17/17 10:02 Dose: Not Given Rosuvastatin Calcium (Crestor) 5 mg PO [facility] Last Admin: 10/17/17 21:44 Dose: 5 mg Sitagliptin Phosphate (Januvia) 25 mg PO DAILY [facility] Results - Vital Signs Recent Vital Signs: Last Vital Signs Temp 97.7 F 10/18/17 07:00 Pulse 74 10/18/17 07:43 Resp 20 10/18/17 07:00 BP 151/69 H 10/18/17 07:00 Pulse Ox 98 10/18/17 07:00 - Labs Result Diagrams: 10/18/17 08:42 10/18/17 08:42 Labs: Laboratory Results - last 24 hr 10/17/17 10/17/17 10/17/17 06:26 11:05 21:21 WBC RBC Hgb Hct MCV MCH MCHC RDW Plt Count MPV Sodium Potassium Chloride Carbon Dioxide Anion Gap BUN Creatinine Est GFR ( Amer) Est GFR (Non-Af Amer) POC Glucose (mg/dL) 157 H 165 H 143 H Random Glucose Calcium 10/18/17 10/18/17 10/18/17 06:18 08:42 08:42 WBC 4.2 L RBC 3.07 L Hgb 9.8 L Hct 29.1 L MCV 94.8 MCH 31.8 H MCHC 33.5 RDW 13.8 Plt Count 262 MPV 7.2 Sodium 143 Potassium 4.2 Chloride 105 Carbon Dioxide 27 Anion Gap 15 BUN 20 H Creatinine 1.9 H Est GFR ( Amer) 31 Est GFR (Non-Af Amer) 26 POC Glucose (mg/dL) 75 Random Glucose 102 Calcium 9.7 Assessment & Plan - Assessment and Plan (Free Text) Assessment: IMP: Azotemia Urolithiasis CAD COPD CHF full note tbd YS - Date & Time Date: 10/18/17 Time: 09:35
--- NOTE | 2017-10-18 14:11 | CT ---
Date of service: 10/18/2017 PROCEDURE: CT abdomen pelvis. HISTORY: Urolithiasis COMPARISON: Comparison made with CT scan abdomen pelvis lymph 9 04/15/2012. TECHNIQUE: Contiguous axial images of the abdomen and pelvis performed without oral or intravenous contrast material. Additional 2D sagittal and coronal reformats generated. This CT exam was performed using one or more of the following dose reduction techniques: Automated exposure control, adjustment of the mA and/or kV according to patient size, and/or use of iterative reconstruction technique. Radiation dose: Total exam DLP = 440.93 mGy-cm. FINDINGS: LOWER THORAX: Minor linear scarring changes seen both lung bases a right greater than left including the middle lobe and lingular regions. No focal consolidation. No effusion or basilar pneumothorax. Heart size within range of normal. No significant pericardial effusion. Coronary artery calcifications are present. There is a tiny hiatal hernia. LIVER: The liver exhibits relatively normal size measuring approximately 17 cm in CC dimension. No obvious hepatic mass or collection. Punctate calcification within the right lobe liver probably represents a tiny granuloma of. GALLBLADDER AND BILE DUCTS: Gallbladder incompletely distended which presumably accounts slight thick-walled appearance. PANCREAS: The pancreas appears grossly unremarkable without masses collections or calcifications. SPLEEN: Spleen exhibits normal size. No splenic mass collection or calcification. ADRENALS: There are no adrenal lesions. KIDNEYS AND URETERS: There is contrast material seen in the left renal collecting system left renal pelvis and proximal most aspect of the left ureter likely due to recent of catheterization study. Partially exophytic 3.1 cm cyst upper pole left kidney compresses the upper pole medial calices. .The right kidney exhibits diminutive cortex likely due to longstanding right-sided hydronephrosis of. There appears to be mild contrast enhancement of the renal parenchyma likely due to delayed nephrographic phase again due to longstanding right-sided hydronephrosis. The ureters dilated to the level of the sacral promontory indent cannot be followed more inferior to this level. . There are calcifications near by this area however these are felt to be vascular in origin. It is unclear 1 of these calcifications lie within the distal ureter. The distal most aspect of the ureter adjacent to the urinary bladder/UVJ region is not visualized. Follow-up cystoscopy/ ureteroscopy and retrograde contrast injection with imaging may be required for definitive diagnosis. BLADDER: Urinary bladder is collapsed and therefore difficult to evaluate. Small amount of residual contrast material is present within the urinary bladder. REPRODUCTIVE: Hysterectomy APPENDIX: Normal appendix. BOWEL: Evaluation of the bowel is limited although the large bowel appears to contain opaque fecalized content material . This could be secondary to ingestion high density material such Pepto-Bismol. . The stomach is incompletely distended. Visualized loops of small bowel exhibit normal contour and caliber no evidence of acute mechanical small bowel obstruction. There does appear to be a few scattered colonic diverticulum along the sigmoid colon however no radiographic evidence diverticulitis. PERITONEUM: Unremarkable. No fluid collection. No free air. . There appears to be on compressive effects on the subcutaneous tissues right pelvis. Clinic correlation with physical exam. LYMPH NODES: Unremarkable. No enlarged lymph nodes. VASCULATURE: Unremarkable. No aortic aneurysm. BONES: The osseous structures appear intact. Multilevel degenerative spondylosis of the lower thoracic and lumbar spine. OTHER FINDINGS: None. IMPRESSION: Limited study as above. There is marked of right-sided hydronephrosis of and hydroureter. The dilated ureter can be traced to the level of the sacral promontory and not below of. There are calcifications in this region of which are felt to be vascular however it is unclear whether 1 could possibly be within the distal ureter. There also appears to be cortical volume loss right kidney likely due to longstanding hydronephrosis. There appears to be some enhancement of the right renal cortex likely due to prolonged nephrographic phase from recent contrast injection from catheter study 10/17/2017. . There is a punctate calcification lower pole collecting system right kidney. Left renal cyst. Urinary bladder is collapsed and therefore difficult to evaluate. The collapsed bladder does contain some residual small amount of oral contrast material. Diverticulosis without radiographic evidence acute diverticulitis. See above discussion for additional findings and details.
--- NOTE | 2017-10-18 14:42 | CP.PCM.PN ---
<Gill Smith - Last Filed: 10/18/17 18:42> Subjective - Date & Time of Evaluation Date of Evaluation: 10/18/17 Time of Evaluation: 14:42 - Subjective Subjective: Cardiology Progress Note - Dr Mabry Patient seen and examined at bedside. Per nursing no acute events overnight. Patient is s/p cardiac cath with FFR of the mid LAD lesion yesterday. She is ambulating and tolerating diet. Denies any chest pain or dyspnea. Objective - Vital Signs/Intake and Output Vital Signs (last 24 hours): Temp Pulse Resp BP Pulse Ox 97.7 F 66 20 132/68 98 10/18/17 07:00 10/18/17 10:12 10/18/17 07:00 10/18/17 10:12 10/18/17 07:00 Intake and Output: 10/18/17 10/18/17 06:59 18:59 Intake Total 460 Balance 460 - Medications Medications: Current Medications Amlodipine Besylate (Norvasc) 5 mg PO DAILY [facility] Last Admin: 10/18/17 10:09 Dose: 5 mg Aspirin (Aspirin Chewable) 81 mg PO DAILY [facility] Last Admin: 10/18/17 10:10 Dose: 81 mg Clopidogrel Bisulfate (Plavix) 75 mg PO DAILY [facility] Last Admin: 10/18/17 10:09 Dose: 75 mg Glipizide (Glucotrol) 10 mg PO BID [facility] Last Admin: 10/18/17 10:09 Dose: 10 mg Sodium Chloride (Sodium Chloride 0.9%) 1,000 mls @ 60 mls/hr IV .[id number] [facility] Last Admin: 10/17/17 21:46 Dose: 60 mls/hr Insulin Aspart (Novolog) 0 unit SC ACHS [facility] PRN Reason: Protocol Last Admin: 10/18/17 11:50 Dose: 1 units Losartan Potassium (Cozaar) 100 mg PO DAILY [facility] Last Admin: 10/18/17 10:10 Dose: 100 mg Metoprolol Tartrate (Lopressor) 50 mg PO BID [facility] Last Admin: 10/18/17 10:09 Dose: 50 mg Pioglitazone HCl (Actos) 45 mg PO DAILY [facility] Last Admin: 10/18/17 10:10 Dose: 45 mg Rosuvastatin Calcium (Crestor) 5 mg PO HS [facility] Last Admin: 10/17/17 21:44 Dose: 5 mg Sitagliptin Phosphate (Januvia) 25 mg PO DAILY [facility] Last Admin: 10/18/17 10:10 Dose: 25 mg - Labs Labs: 10/18/17 08:42 10/18/17 08:42 PT 12.8 SECONDS (9.7-12.2) H 10/13/17 05:10 INR 1.2 10/13/17 05:10 APTT 48 SECONDS (21-34) H D 10/14/17 11:23 Assessment and Plan - Assessment and Plan (Free Text) Assessment: A/P: Patient is a 76 y/o female with past medical history of diabetic, with known history of HTN, hyperlipiedemia who was admitted because of shortness of breath. Patient admitted for NSTEMI NSTEMI -Stable, afebrile -Continue ASA 81mg and Plavix 75mg -Cardiac catherization 10/16 showed L Main: Patent, LAD/Diags: Mid LAD calcific 70-80% stenosis, L Cx/RCA: Patent -s/p FFR of the mid LAD lesion, Final FFR value after Adenosine infusion is 0.97 suggestive of non obstructive lesion -No stent needed, Recommend medical management -Plan discussed with Dr Mabry Renal Calculi with obstructive Uropathy -Urology consult requested Hypertension -Continue Norvasc 5mg PO daily, Metoprolol 50mg PO BID, Cozaar 100mg PO daily Diabetes Mellitus -Continue Januvia 50mg PO daily, Glipizide 10mg PO BID, Actos 45mg PO daily Hyperlipidemia -Crestor 5mg PO HS Chronic Kidney Disease -Renal workup in progress Gill Smith DO PGY-2 <Andry Mabry - Last Filed: 10/19/17 07:22> Objective - Vital Signs/Intake and Output Vital Signs (last 24 hours): Temp Pulse Resp BP Pulse Ox 98.3 F 67 20 158/72 H 99 10/18/17 15:26 10/18/17 17:35 10/18/17 15:26 10/18/17 17:35 10/18/17 15:26 - Labs Labs: 10/18/17 08:42 10/18/17 08:42 PT 12.8 SECONDS (9.7-12.2) H 10/13/17 05:10 INR 1.2 10/13/17 05:10 APTT 48 SECONDS (21-34) H D 10/14/17 11:23 Assessment and Plan - Assessment and Plan (Free Text) Assessment: Patient seen and evaluated personally by me. Plan of care d/w the resident and as documented
[2017-10-18 15:29] VITALS: TEMP 98.3; O2SAT 99
--- NOTE | 2017-10-18 15:50 | RAD ---
Date of service: 10/18/2017 HISTORY: Urolithiasis COMPARISON: No prior. FINDINGS: BOWEL: Normal. No obstruction. No free air. BONES: Minor multilevel degenerative spondylosis of the lower thoracic lumbar spine. OTHER FINDINGS: Opaque contrast material opacifies urinary bladder opacifies the urinary bladder questionably secondary to recent prior catheterization however clinical correlation recommended. No obvious abnormal calcifications are seen overlying the renal silhouettes follow-up CT scan could be performed confirm the. IMPRESSION: No evidence of acute mechanical bowel obstruction. Opaque contrast material opacifies bladder as described. No definitive evidence of abnormal calcification overlying the renal silhouettes
--- NOTE | 2017-10-18 16:35 | CP.PCM.PN ---
Subjective - Date & Time of Evaluation Date of Evaluation: 10/18/17 Time of Evaluation: 16:34 - Subjective Subjective: PATIENT WAS ADMITTED FOR NSEMI S/P CATH SHOW LAD 70 % STENOSIS DENIES CHEST PAIN / SOB / NAUSEA / OR VOMITING Objective - Vital Signs/Intake and Output Vital Signs (last 24 hours): Temp Pulse Resp BP Pulse Ox 98.3 F 71 20 126/57 L 99 10/18/17 15:26 10/18/17 15:26 10/18/17 15:26 10/18/17 15:26 10/18/17 15:26 Intake and Output: 10/18/17 10/18/17 06:59 18:59 Intake Total 460 Balance 460 - Medications Medications: Current Medications Amlodipine Besylate (Norvasc) 5 mg PO DAILY [facility] Last Admin: 10/18/17 10:09 Dose: 5 mg Aspirin (Aspirin Chewable) 81 mg PO DAILY [facility] Last Admin: 10/18/17 10:10 Dose: 81 mg Clopidogrel Bisulfate (Plavix) 75 mg PO DAILY [facility] Last Admin: 10/18/17 10:09 Dose: 75 mg Glipizide (Glucotrol) 10 mg PO BID [facility] Last Admin: 10/18/17 10:09 Dose: 10 mg Sodium Chloride (Sodium Chloride 0.9%) 1,000 mls @ 60 mls/hr IV .[id number] [facility] Last Admin: 10/17/17 21:46 Dose: 60 mls/hr Insulin Aspart (Novolog) 0 unit SC ACHS [facility] PRN Reason: Protocol Last Admin: 10/18/17 11:50 Dose: 1 units Losartan Potassium (Cozaar) 100 mg PO DAILY [facility] Last Admin: 10/18/17 10:10 Dose: 100 mg Metoprolol Tartrate (Lopressor) 50 mg PO BID [facility] Last Admin: 10/18/17 10:09 Dose: 50 mg Pioglitazone HCl (Actos) 45 mg PO DAILY [facility] Last Admin: 10/18/17 10:10 Dose: 45 mg Rosuvastatin Calcium (Crestor) [address] [facility] Last Admin: 10/17/17 21:44 Dose: 5 mg Sitagliptin Phosphate (Januvia) 25 mg PO DAILY [facility] Last Admin: 10/18/17 10:10 Dose: 25 mg - Labs Labs: 10/18/17 08:42 10/18/17 08:42 PT 12.8 SECONDS (9.7-12.2) H 10/13/17 05:10 INR 1.2 10/13/17 05:10 APTT 48 SECONDS (21-34) H D 10/14/17 11:23 Assessment and Plan - Assessment and Plan (Free Text) Assessment: PATIENT WENT FOR PCI / NO STENT NEEDED PER DR VAZQUEZ RUKHSANA RECOMMEND BUT PATIENT WANT TO GO HOME / PMD AWARE AND CLEAR FOR DC HOME DISCUSS WITH DR VAZQUEZ WHO CLEAR TO DC HOME ON ASA AND PLAVIX FOLLOW UP WITH DR PHILIP AT HER OFFICE IN 1-2 WEEK ---CALL FOR APPOINTMENT FOLLOW UP WITH DR MAHAN AT HIS OFFICE 2 WEEKS ---CALL FOR APPOINTMENT FOLLLOW UP WITH PORTILLO ROMEO AT HIS OFFICE NEXT WEEK ---CALL FOR APPOINTMENT ADDRESS YOUR ABDOMEN CT RESULT/ABD XRAY / URINE CULT /URINALYSIS AT YOUR APPOINTMENT CONTINUE ALL HOME MEDICATION ORDER NEW PRESCRIPTION GIVEN PLAVIX 75 MG PO DAILY ACTIVITY TOLERATED CALL DR PHILIP OR GO TO THE EMERGENCY ROOM IF SYMPTOMS RETURN OR WORSENING DISCUSS WITH PATIENT WHO AGREE AND VERBALIZED UNDERSTANDING DISCUSS WITH PATIENT WHO AGREE AND VERBALIZED UNDERSTANDING
[2017-10-18 17:36] VITALS: BP 158/72; PULSE 67
[2017-10-18 21:47] LABS: SQUAMOUS EPITHIAL < 1 /hpf (0-5); URINE BILIRUBIN NEGATIVE (NEGATIVE); URINE BLOOD NEGATIVE (NEGATIVE); URINE CLARITY Clear (Clear); URINE COLOR Yellow (YELLOW); URINE GLUCOSE (UA) NORMAL (Normal); URINE LEUKOCYTE ESTERASE TRACE Leu/uL (Negative); URINE PROTEIN 1+ mg/dL (NEGATIVE); URINE UROBILINOGEN NORMAL mg/dL (0.2-1.0)
--- NOTE | 2017-10-19 22:00 | CARD ---
APPROVED REPORT Date of service: 10/13/2017 EKG Measurement Heart [id number] NM [id number] <Conclusion> Normal sinus rhythm Nonspecific T wave abnormality Abnormal ECG
--- NOTE | 2017-10-20 16:36 | CARDCATH ---
Copied To: Andry Mabry MD Attending MD: Andry Mabry MD PROCEDURE DATE: 10/14/2017 PROCEDURES: 1. Left heart catheterization. 2. Coronary angiogram. CLINICAL INDICATIONS: 1. Chest pain. 2. Abnormal troponin. 3. Hypertension. 4. Chronic kidney disease stage 3. DESCRIPTION OF PROCEDURE: After informed consent, the patient was prepped and draped in the usual sterile fashion. Lidocaine 2% was given in the right groin for local anesthesia. Using micropuncture technique, a 6-Gabonese sheath was introduced into the right common femoral artery. A JL4 6-Gabonese diagnostic catheter was engaged into the left main coronary artery. Contrast injected and left coronary angiogram was done. Then, JR4 6-Gabonese diagnostic catheter engaged into the right coronary artery. Contrast injected and right coronary artery angiogram was done. LV angiogram was not done as the patient has chronic kidney disease. The patient tolerated the procedure very well. Postprocedure, radiological supervision and radiological interpretation of the coronary imaging was done. FINDINGS: 1. Proximal left main coronary artery has 20% stenosis. 2. Ostial LAD has 40% stenosis, mid LAD has a 60% to 70% stenosis, and distal LAD and diagonal branches are patent. 3. Left circumflex and obtuse marginal branches are patent. IMPRESSION: Single-vessel coronary artery disease as described above. PLAN: Recommend FFR-guided coronary angioplasty of the left anterior descending coronary artery. Andry Mabry MD
--- NOTE | 2017-10-21 07:10 | CON ---
Copied To: Ave Garcia MD Attending MD: Ave Garcia MD DATE: 10/18/2017 UROLOGY CONSULTATION REQUESTED BY: Dr. AliciaChristelle. Urology consultation filled by Dr. Ave Garcia. REASON FOR CONSULTATION: Urolithiasis. The patient is a 76-year-old female with urolithiasis. The patient is in otherwise fair health. The patient was admitted for cardiac disease. The patient has history of COPD, CHF, and coronary artery disease. The patient underwent cardiac angiogram this week. She reports that she did not have angioplasty with stent placement. The patient was found to have urolithiasis. Urology consultation is thus obtained. Mrs. Zuleta reports no history of previous urolithiasis. No flank pain. No hematuria. No recent dysuria. No rigors. No fever. The patient is uncertain regarding history of previous urinary tract infection. The patient voids with good urinary stream and good control. The patient lives with her . Her is, in fact, a patient in the hospital at this time and is sharing her room in [facility]. PHYSICAL EXAMINATION: GENERAL: The patient is a well-developed, well-nourished elderly male. The patient is awake and alert. The patient is comfortable in no acute distress. ABDOMEN: Soft, nontender, and nondistended. No mass or organomegaly. BACK: No CVA tenderness. LABORATORY DATA: Reviewed. IMPRESSION: Urolithiasis. Azotemia. Coronary artery disease. RECOMMENDATIONS AND PLAN: Urinalysis. Urine culture. KUB with both oblique views. CAT scan of the abdomen without contrast. Further therapy to follow according to the patient's clinical course as well as results of above. Possible need for lithotripsy. I discussed the findings with the nursing staff. Further urologic therapy to follow according to the patient's clinical course as well as results of above. Thank you for recommending the patient for urology consultation. Ave Garcia MD cc: Dr. Alicia
== END 2017-10-18 18:00 | disposition home or self-care (01) | DRG 281 ==
LOC: C.ER 20:03 → C.5E 22:00 → C.6T 22:50 → C.9E 22:50 → C.5S 10-13 08:38
PROVIDERS: ADMIT Internal Medicine; ATTEND Internal Medicine Cardiovascular Disease
PROC: B2111ZZ Fluoroscopy of Multiple Coronary Arteries using Low Osmolar Contrast (ICD-10-PCS; 2017-10-14)
PROC: 4A023N7 Measurement of Cardiac Sampling and Pressure, Left Heart, Percutaneous Approach (ICD-10-PCS; principal; 2017-10-14 14:00)
DX: I21.4 Non-ST elevation (NSTEMI) myocardial infarction (principal); I13.0 Hypertensive heart and chronic kidney disease with heart failure and stage 1 through stage 4 chronic kidney disease, or unspecified chronic kidney disease; N13.2 Hydronephrosis with renal and ureteral calculous obstruction; I25.10 Atherosclerotic heart disease of native coronary artery without angina pectoris; E78.5 Hyperlipidemia, unspecified; E11.65 Type 2 diabetes mellitus with hyperglycemia; I50.9 Heart failure, unspecified; J44.9 Chronic obstructive pulmonary disease, unspecified; N18.3 Chronic kidney disease, stage 3 (moderate); Z79.84 Long term (current) use of oral hypoglycemic drugs; E11.22 Type 2 diabetes mellitus with diabetic chronic kidney disease

== ENCOUNTER 2017-10-21 04:07 | Observation (INO) | payer MEDICARE ==
--- NOTE | 2017-10-21 04:09 | C.PDOC ---
History Of Present Illness pt who is 1 week post nstemi, presents with an episode of shortness of breath at rest. No chest pain, speaking in complete sentences. Time Seen by Provider: 10/21/17 04:09 Chief Complaint (Nursing): Shortness Of Breath History Per: Patient History/Exam Limitations: no limitations Onset/Duration Of Symptoms: Hrs Current Symptoms Are (Timing): Gone Initiating Event: Other Current Respiratory Medications: See Home Med List Severity: Mild Pain Scale Rating Of: 3 Associated Symptoms: denies: Fever, Chills, Sweating, Chest Pain, Heart Racing, Light-headedness Reports Recently: Seen In ED, Treated By A Physician, Hospitalized Recent travel outside of the [place]: No Additional History Per: Family Past Medical History Reviewed: Historical Data, Nursing Documentation, Vital Signs Vital Signs: Last Vital Signs Temp Pulse 68 10/21/17 05:32 Resp 20 10/21/17 05:32 BP 135/57 L 10/21/17 05:32 Pulse Ox 97 10/21/17 05:32 - Medical History PMH: Diabetes, HTN, Hypercholesterolemia, Hyperlipidemia Denies: Chronic Kidney Disease Family History: States: No Known Family Hx - Social History Hx Alcohol Use: No Hx Substance Use: No Review Of Systems Constitutional: Negative for: Fever, Chills Eyes: Negative for: Vision Change ENT: Negative for: Throat Pain Cardiovascular: Negative for: Chest Pain, Palpitations, Orthopnea Respiratory: Positive for: Shortness of Breath Gastrointestinal: Negative for: Nausea, Vomiting, Abdominal Pain Genitourinary: Negative for: Dysuria Musculoskeletal: Negative for: Back Pain Skin: Negative for: Rash, Lesions Neurological: Negative for: Weakness Psych: Positive for: Anxiety Physical Exam - Physical Exam Appears: Non-toxic, No Acute Distress Skin: Warm, Dry Head: Normacephalic Eye(s): bilateral: Normal Inspection Oral Mucosa: Moist Neck: Supple Chest: Symmetrical Cardiovascular: Rhythm Regular Respiratory: No Rales, No Rhonchi, No Wheezing Gastrointestinal/Abdominal: Soft, No Tenderness, No Distention Back: No CVA Tenderness Extremity: Normal ROM Extremity: Bilateral: Atraumatic, Normal Color And Temperature Pulses: Left Dorsalis Pedis: Normal, Right Dorsalis Pedis: Normal Neurological/Psych: Oriented x3 Gait: Steady ED Course And Treatment - Laboratory Results Result Diagrams: 10/21/17 04:18 10/21/17 04:18 ECG: Interpreted By Me, Viewed By Me ECG Rhythm: Sinus Rhythm (75), Nonspecific Changes O2 Sat by Pulse Oximetry: 97 Pulse Ox Interpretation: Normal - Radiology CXR: Interpreted by Me, Viewed By Me CXR Interpretation: Yes: Cardiomegaly, Other (mild vascular congestion, unchanged from 10/12/17). No: Infiltrates, Fracture Disposition Discussed With Dr.: Cande Coleman Comment: accepted the pt on his service and took over the care at 6:50 AM Doctor Will See Patient In The: Hospital Counseled Patient/Family Regarding: Studies Performed, Diagnosis - Disposition Disposition: HOSPITALIZED Disposition Time: 04:09 Condition: FAIR Forms: [employer] (Romanian) - POA Present On Arrival: Poor Glycemic Control - Clinical Impression Clinical Impression: Dyspnea, CHF (congestive heart failure) Decision To Admit - Pt Status Changed To: Hospital Disposition Of: Observation - . Bed Request Type: Telemetry Admitting Physician: Cande Coleman Patient Diagnosis: Dyspnea, CHF (congestive heart failure)
[2017-10-21 04:10] VITALS: BMI 24.7
[2017-10-21 04:29] LABS: INR 1.1; PROTHROMBIN TIME 12.5 SECONDS (9.7-12.2)
[2017-10-21 04:45] LABS: ABG ALLEN TEST POS; ARTERIAL BLOOD GAS HCO3 20.6 mmol/L (21-28); ARTERIAL BLOOD GAS O2 SAT 98.9 % (95-98); ARTERIAL BLOOD GAS PCO2 28 mm/Hg (35-45); ARTERIAL BLOOD GAS PH 7.41 (7.35-7.45); ARTERIAL BLOOD GAS PO2 84 mm/Hg (80-100); ARTERIAL BLOOD GAS TCO2 18.6 mmol/L (22-28)
[2017-10-21 04:56] LABS: TROPONIN I 0.021 ng/mL (0.00-0.120)
[2017-10-21 05:23] LABS: ALB/GLOB RATIO 1.3 (1.0-2.1); ALBUMIN 3.7 g/dL (3.5-5.0); CALCIUM 9.7 mg/dl (8.6-10.4)
[2017-10-21 05:37] LABS: BASO # 0.1 K/uL (0.0-0.2); BASO % 1.1 % (0.0-2.0); EOS # 0.1 K/uL (0.0-0.7); EOS % 1.3 % (0.0-4.0); HEMOGLOBIN 9.1 g/dL (11.0-16.0); LYMPH # 0.8 K/uL (1.0-4.3); LYMPH % 15.2 % (20.0-40.0); MEAN CELL VOLUME 94.4 fL (81.0-99.0); MEAN CORPUSCULAR HEMOGLOBIN 31.8 pg (27.0-31.0); MEAN CORPUSCULAR HGB CONC 33.6 g/dL (33.0-37.0); MEAN PLATELET VOLUME 7.4 fL (7.2-11.7); MONO # 0.6 K/uL (0.0-0.8); MONO % 10.3 % (0.0-10.0); NEUT % 72.1 % (50.0-75.0); RBC 2.87 Mil/uL (3.80-5.20); RED CELL DISTRIBUTION WIDTH 13.8 % (11.5-14.5); WHITE BLOOD COUNT 5.5 K/uL (4.8-10.8)
[2017-10-21 08:17] VITALS: RESP 20
--- NOTE | 2017-10-21 09:10 | RAD ---
Date of service: 10/21/2017 PROCEDURE: CHEST RADIOGRAPH, 1 VIEW HISTORY: SOB COMPARISON: 10/12/2017 FINDINGS: LUNGS: The lungs are well inflated and clear. There is linear scarring in the both lower lobes sign. PLEURA: No pneumothorax or pleural fluid seen. CARDIOVASCULAR: The heart is normal in size. Atherosclerotic aortic arch calcifications are present. OSSEOUS STRUCTURES: No significant abnormalities. VISUALIZED UPPER ABDOMEN: Normal. OTHER FINDINGS: None. IMPRESSION: No acute findings.
[2017-10-21 14:36] LABS: CK-MB 0.81 ng/mL (0.0-3.38); TROPONIN I 0.022 ng/mL (0.00-0.120)
[2017-10-21] MEDS ORDERED: Rosuvastatin Calcium 2.5 mg Tab PO SCH (22:00)
[2017-10-21 23:11] LABS: CK-MB 0.67 ng/mL (0.0-3.38); TROPONIN I 0.019 ng/mL (0.00-0.120)
[2017-10-22 06:16] LABS: SQUAMOUS EPITHIAL < 1 /hpf (0-5); URINE BACTERIA RARE (<OCC); URINE BILIRUBIN NEGATIVE (NEGATIVE); URINE BLOOD NEGATIVE (NEGATIVE); URINE CLARITY Clear (Clear); URINE COLOR Straw (YELLOW); URINE GLUCOSE (UA) NORMAL (Normal); URINE LEUKOCYTE ESTERASE 2+ Leu/uL (Negative); URINE PROTEIN NEGATIVE (NEGATIVE); URINE UROBILINOGEN NORMAL mg/dL (0.2-1.0)
[2017-10-22 08:19] VITALS: BP 141/71; TEMP 97.5; O2SAT 97
[2017-10-22 12:52] VITALS: PULSE 61
--- NOTE | 2017-10-22 17:50 | PCM.HF ---
Heart Failure Core Measure - Heart Failure Ejection Fraction: 40 % or Greater RUFINO Inhibitor Prescribed: No Contraindication/Reason for not providing: on arb Beta-Cole Prescribed: Bisoprolol Angiotensin II Receptor Cole Prescribed: Yes AnticoagulationTherapy for Atrial Fibrillation/Atrialflutter: No Contraindication/Reason for not providing: no hx of a fib Aldosterone Antagonist Prescribed: No Contraindication/Reason for not providing: ef>45 Hydralazine Nitrate Prescribed: No Contraindication/Reason for not providing: ef>45 Implantable Cardioverter Defibrillator Therapy: No Contraindication/Reason for not providing: ef>45 Cardiac Resynchronization Therapy Prescribed: No Contraindication/Reason for not providing: ef>45/ NSR/ - Follow up Will be discharged to: Home Follow Up Date (must be within 7 days from discharge): 10/25/17 Follow Up Time: 09:00
--- NOTE | 2017-10-23 14:23 | CARD ---
APPROVED REPORT Date of service: 10/21/2017 EKG Measurement Heart [id number] <Conclusion> Normal sinus rhythm Nonspecific T wave changes V1 - v2 Borderline ECG
== END 2017-10-22 15:45 | disposition home or self-care (01) ==
LOC: C.ER 04:07 → C.9E 06:48 → C.6T 07:05
PROVIDERS: ADMIT Internal Medicine Cardiovascular Disease; ATTEND Internal Medicine Cardiovascular Disease
DX: I11.0 Hypertensive heart disease with heart failure (principal); I50.9 Heart failure, unspecified; I21.4 Non-ST elevation (NSTEMI) myocardial infarction; E11.9 Type 2 diabetes mellitus without complications; E78.5 Hyperlipidemia, unspecified; E78.00 Pure hypercholesterolemia, unspecified; Z79.84 Long term (current) use of oral hypoglycemic drugs; Z79.82 Long term (current) use of aspirin
CPT/HCPCS: 71045; 80053; 81001; 82803; 82948; 83735; 83880; 84443; 84484; 85025; 85610; 85730; 96374; 97110; 97162; 99285; G0378; G8978; G8979; G8980; J1644; J1940

== ENCOUNTER 2017-12-16 06:03 | Day surgery (SDC) | payer MEDICARE ==
[2017-12-16] MEDS ORDERED: cefTRIAXone 1 gm 1 GM/100 ML BAG IVPB ONE (07:15)
[2017-12-16] MEDS ORDERED: Iohexol 240 (50 ml) ONE (07:16)
[2017-12-16] MEDS ORDERED: Midazolam 2 MG/2 ML VIAL ONE (07:53)
[2017-12-16] MEDS ORDERED: Propofol 10 mg/ml Inj (20 ML) ONE (07:54)
[2017-12-16] MEDS ORDERED: Phenylephrine 10 mg/ml Inj ONE (08:19)
[2017-12-16] MEDS ORDERED: Lidocaine Hydrochloride 5 ML INJ ONE (08:19)
[2017-12-16] MEDS ORDERED: Lidocaine 2% Jelly (Uro-Jet) ONE (08:50)
[2017-12-16] MEDS ORDERED: HYDROmorphone 0.5 mg/0.5 ml ISec IVP PRN (08:58)
--- NOTE | 2017-12-16 09:08 | PCM.SURG1 ---
Surgeon's Initial Post Op Note - Surgeon's Notes Surgeon: Karson Garcia Swager Operator: none Type of Anesthesia: General Mask Pre-Operative Diagnosis: R hydronephrosis Operative Findings: same, R ureteral obstruction at mid ureter, w possible filling defect Post-Operative Diagnosis: same Operation Performed: cysto. bilat rtg pyelogram. insertion of R ureteral stent. EUA Specimen/Specimens Removed: urine Estimated Blood Loss: EBL {In ML}: 0 Blood Products Given: N/A Post-Op Condition: Good Date of Surgery/Procedure: 12/16/17 Time of Surgery/Procedure: 08:45
[2017-12-16 11:08] VITALS: BP 147/54; PULSE 67; RESP 15; TEMP 97.9; O2SAT 99
--- NOTE | 2017-12-16 13:25 | RAD ---
Date of service: 12/16/2017 PROCEDURE: Intraoperative Fluoroscopy. HISTORY: RT. HYDRONEPHROSIS FINDINGS: Fluoroscopic assistance was provided for bilateral retrograde and stent placement. Please refer to the operative report from Dr. NATH, RAVENA. Total fluoroscopic time (continuous mode) utilized during the procedure 113.4 (seconds). Dose report: DLP 1.18 (mGy/m2)
--- NOTE | 2017-12-17 16:38 | RAD ---
Date of service: 12/16/2017 HISTORY: RT. HYDRONEPHROSIS COMPARISON: 10/18/2017 FINDINGS: BOWEL: Stool retention. No bowel obstruction. BONES: Mild inferior lumbar facet hypertrophic arthrosis. OTHER FINDINGS: Few faint hemipelvic calcifications nonspecific not significantly changed. Nonspecific no upper abdominal calcifications to suggest renal calculi. IMPRESSION: Moderate stool retention. No bowel obstruction. Nonspecific few hemipelvic calcifications closest to each inferior SI [id number]
--- NOTE | 2017-12-19 07:25 | OP ---
PROCEDURE DATE: 12/16/2017 PREOPERATIVE DIAGNOSIS: Right hydronephrosis. POSTOPERATIVE DIAGNOSIS: Right hydronephrosis. PROCEDURES: Cystoscopy. Right retrograde pyelogram. Right ureteral catheterization. Insertion of right ureteral stent. Left retrograde pyelogram. Exam under anesthesia. OPERATING SURGEON: Ave Garcia MD DESCRIPTION OF PROCEDURE: The patient was placed in lithotomy position. The patient received perioperative antibiotics. Anesthesia was provided by the anesthesiologist. The genitalia were prepped and draped sterilely. Procedure was performed under video endoscopic control as well as under fluoroscopic control. Procedure as follows: The 22-Fijian cystoscope sheath was introduced with obturator. Urine was sent for bacteriologic examination. The urethra and bladder were inspected with 30-degree and 70-degree lenses. FINDINGS: There was mild inflammation of the bladder mucosa. There was mild bladder trabeculation. There was no bladder tumor. There was no bladder stone. The ureteral orifices were normal in position and shape. There was mild inflammation of the trigone. There was no bladder diverticulum. Iodinated contrast dye was instilled via a cone-tip catheter into the right ureteral orifice. The ureter was viewed under fluoroscopic control. The distal ureter was noted to be normal. At the level of the sacrum, there was noted to be a narrowing of the urethra with [id number] dilation above this narrowing. On the primer inserting machine adjuster film of the abdomen, there was a possible radiodensity over this area of the sacrum. Further injection of iodinated contrast dye revealed contrast flowing beyond the point of obstruction. On some of the fluoroscopic views, there was suggestion of a possible radiolucent filling defect in this area. A 0.035-inch guidewire was inserted into ureteral orifice. The guidewire encountered obstruction in this area. Simultaneous manipulation with an open-ended catheter and the guidewire allowed the guidewire to be advanced into the more proximal ureter. Iodinated contrast dye was further instilled. There was marked kinking and secondary kinking of the mid and upper ureter. The guidewire would not pass beyond the kinking. Further attempt at manipulation using the open-ended catheter as well as the Glidewire was successful in both reaching the kidney with the guidewire as well as straightening of the ureter. The open-ended catheter was inserted up to the level of the kidney. There was noted to be a brisk continuous hydronephrotic flow from the kidney. Urine from the kidney was clear. Urine from the kidney was sent for bacteriologic examination. Iodinated contrast dye was instilled through the open-ended catheter. There was noted to be marked hydronephrosis. The Sensor guidewire was reinserted. A 6-Fijian multi-length stent was inserted over the guidewire. Proper position of the stent was confirmed with fluoroscopy and endoscopy. The guidewire was removed and the stent was left in place. The left retrograde ureteropyelogram was then performed. Iodinated contrast dye was instilled via the cone-tip catheter into the left ureteral orifice. The left retrograde pyelogram demonstrated no evidence of filling defect or obstruction. The bladder was reinspected with 70-degree lens. The above findings were confirmed. The bladder was then drained and cystoscope sheath removed. Lidocaine jelly was instilled per urethra. The bladder had been drained. Exam under anesthesia/bimanual examination was performed. There was no abnormal pelvic mass fixation or induration. There was no adnexal mass. The patient was returned to the supine position. The patient tolerated the procedure without complication. Ave Garcia MD
== END 2017-12-16 11:17 | disposition home or self-care (01) ==
LOC: C.SDS 06:03
PROVIDERS: ATTEND Urology
DX: N13.30 Unspecified hydronephrosis (principal); E11.9 Type 2 diabetes mellitus without complications; I10 Essential (primary) hypertension; J44.9 Chronic obstructive pulmonary disease, unspecified
CPT/HCPCS: 52005; 52332; 74022; 82948; 87086; C1725; C1758; C1769; C9738; J0696

== ENCOUNTER 2018-01-08 09:41 | Day surgery (SDC) | payer MEDICARE ==
[2018-01-08] MEDS ORDERED: Lidocaine 2% Jelly (Uro-Jet) ONE (12:20)
[2018-01-08] MEDS ORDERED: Iohexol 240 (50 ml) ONE (12:20)
[2018-01-08] MEDS ORDERED: cefTRIAXone 1 gm 1 GM/100 ML BAG IVPB ONE (12:20)
[2018-01-08] MEDS ORDERED: Propofol 10 mg/ml Inj (20 ML) ONE (12:28)
[2018-01-08] MEDS ORDERED: Midazolam 2 MG/2 ML VIAL ONE (12:28)
[2018-01-08] MEDS ORDERED: HYDROmorphone 0.5 mg/0.5 ml ISec IVP PRN (13:43)
--- NOTE | 2018-01-08 13:54 | PCM.SURG1 ---
Surgeon's Initial Post Op Note - Surgeon's Notes Surgeon: Karson Garcia Hot Roll Inspector: none Type of Anesthesia: General LMA Pre-Operative Diagnosis: R hydronephrosis Operative Findings: R ureteral stricture. R ureteral calculus Post-Operative Diagnosis: same Operation Performed: cysto,. r ureteroscopy. R uretral dilation. R ureteral stone basketing. insertion of R ureteral stent. EUA Specimen/Specimens Removed: ureine. stone Estimated Blood Loss: EBL {In ML}: 0 Blood Products Given: N/A Post-Op Condition: Good Date of Surgery/Procedure: 01/08/18 Time of Surgery/Procedure: 13:45
[2018-01-08 14:57] VITALS: BP 137/80; PULSE 81; RESP 18; TEMP 97; O2SAT 97
--- NOTE | 2018-01-08 15:11 | RAD ---
Date of service: 01/08/2018 PROCEDURE: Intraoperative Fluoroscopy. HISTORY: RIGHT HYDRONEPHROSIS FINDINGS: Fluoroscopic assistance was provided for right ureteroscopy. Please refer to the operative report from AGUEDA Mcdaniels. Total fluoroscopic time (continuous mode) utilized during the procedure 55.0 seconds. Dose report: DLP 0.5352 6 (mGy/m2)
--- NOTE | 2018-01-08 16:46 | RAD ---
Date of service: 01/08/2018 HISTORY: RIGHT HYDRONEPHROSIS COMPARISON: None available. FINDINGS: BOWEL: Constipation without mechanical obstruction. No free air BONES: Normal. OTHER FINDINGS: Position of the double J stent catheter(s): Satisfactory IMPRESSION: Satisfactory position of deployed double-J stent catheter on the right.
--- NOTE | 2018-01-09 04:47 | OP ---
PROCEDURE DATE: 01/08/2018 UROLOGY OPERATIVE REPORT PREOPERATIVE DIAGNOSIS: Right hydronephrosis. POSTOPERATIVE DIAGNOSES: Right hydronephrosis, right ureteral stricture, right ureteral calculus. OPERATING SURGEON: Ave Garcia MD PROCEDURES: Cystoscopy. Right ureteroscopy. Right ureteral balloon dilation. Right ureteral stone basketing. Right retrograde pyelogram. Insertion of right ureteral stent. Procedure was performed under fluoroscopic control as well as video endoscopic control. DESCRIPTION OF PROCEDURE: Procedure as follows. Perioperative antibiotics were administered. The patient was placed in lithotomy position. General anesthesia was administered via laryngeal mask airway. A 22-Taiwanese cystoscope sheath was introduced with obturator. Urine was sent for bacteriologic examination. The urethra and bladder were inspected with a 30-degree lens. FINDINGS: There was mild inflammation of bladder mucosa. There were no focal lesions within the bladder. There was no bladder tumor. There was no bladder stone. The right ureteral stent was identified emerging from the right ureteral orifice. The right ureteral stent was grasped with rigid grasping forceps and brought to the level of urethral meatus along with cystoscope sheath. A 0.035-inch guidewire was inserted into the right ureteral stent and passed up to level of the kidney. The ureteral stent was removed. Ureteroscopy was performed with the 7-Taiwanese mini rigid ureteroscope. Ureteroscope was introduced per urethra. The ureteral orifices were identified with its indwelling wire. A second wire was advanced through the ureteroscope into the ureter and up to level of the kidney. Ureteroscope was advanced in atraumatic fashion into the distal ureter. The ureteroscope encountered obstruction at the lower level of the sacrum. Ureteroscope could not be advanced further. Attempted advancing the ureteroscope in an atraumatic fashion over the guidewire was performed in a gentle fashion. Trendelenburg position was obtained to facilitate advancement of the ureteroscope. The ureteroscope still could not be advanced. Balloon dilation of the ureter was performed with the 15-Taiwanese ureteral balloon dilator passed over the working wire. Adequate dilation was obtained. The rigid ureteroscope still could not be advanced. The 7-Taiwanese flexible ureteroscope was advanced over the working wire. The ureteroscope was advanced, passed the area of the narrowing into the mid ureter. There was some inflammatory mucosa. There was no tumor identified. There was a small stone fragment, less than 1 mm in size. In addition, there was another stone, brown black in color, rounded, and smooth, approximately 4 mm in size. Under direct ureteroscopic control, the ureteral calculus was engaged in the stone basket. The ureteroscope and stone and basket were removed intact in an atraumatic fashion. The rigid ureteroscope was then advanced per urethra into the ureter. The ureteral mucosa was intact. The ureteroscope was removed. A 6-Taiwanese multi-length stent was inserted over the remaining guidewire. Contrast had been instilled into the collecting system, to delineate the renal collecting system anatomy. Proper stent position was confirmed with fluoroscopy and endoscopy. The guidewire was removed, and the stent was left in place. The bladder was then drained. Cystoscope and sheath were removed. Exam under anesthesia was performed. There was no abnormal pelvic mass fixation or induration. There was no adnexal mass. The uterus was not palpable. The patient tolerated the procedure without complication. Ave Garcia MD
== END 2018-01-08 15:00 | disposition home or self-care (01) ==
LOC: C.SDS 09:41
PROVIDERS: ATTEND Urology
DX: N13.30 Unspecified hydronephrosis (principal); N20.9 Urinary calculus, unspecified
CPT/HCPCS: 52332; 52344; 52352; 74018; J0696